=== PATIENT | female | born 1955 | race Caucasian/White ===

== ENCOUNTER → 2016-06-22 | Outpatient (CLI) | payer BC ==
[2016-06-22 18:20] LABS: ALT/SGPT 35 U/L (12-78); AST/SGOT 29 U/L (15-37); BLOOD UREA NITROGEN 20 mg/dl (7-18); BUN/CREATININE RATIO 16.3 (10-20); CARBON DIOXIDE 27 mmol/L (21-32); CHLORIDE 109 mmol/L (98-107); GLUCOSE 89 mg/dl (70-99); SODIUM 144 mmol/L (136-145)
[2016-06-22 18:20] LABS: URINE APPEARANCE CLEAR (CLEAR); URINE BILIRUBIN NEG (NEG); URINE COLOR YELLOW; URINE NITRITE NEG (NEG); URINE PH 5.5 (4.5-7.5); URINE SPECIFIC GRAVITY 1.014 (1.000-1.030); UROBILINOGEN NEG (NEG)
[2016-06-22 18:23] LABS: MANUAL MICROSCOPIC REQUIRED? NO; REVIEW REQ? NO
[2016-06-22 18:26] LABS: ESTIMATED AVERAGE GLUCOSE 131 mg/dl; HA1C FLAG Normal (Normal)
[2016-06-22 18:29] LABS: ALKALINE PHOSPHATASE 39 U/L (45-117); CHOLESTEROL 152 mg/dl (0-200); CHOLESTEROL/HDL RATIO 4.2; HDL CHOLESTEROL 36 mg/dl; LDL CHOLESTEROL CALCULATED 91 mg/dl; PHOSPHORUS 3.1 mg/dl (2.5-4.9); TRIGLYCERIDES 127 mg/dl (0-150); VERY LOW DENSITY LIPOPROT CALC 25 mg/dl
== END | disposition home or self-care (01) ==
LOC: C.LABMFLN 10:50
PROVIDERS: ATTEND Internal Medicine Nephrology
DX: N18.3 Chronic kidney disease, stage 3 (moderate) (principal); E78.5 Hyperlipidemia, unspecified; R73.03 Prediabetes

== ENCOUNTER → 2017-05-03 | Day surgery (SDC) | payer BC ==
[2017-03-30 08:44] VITALS: Ht 162.6 cm; Wt 99.1 kg
[~2017-05-03] VITALS: Ht 162.6 cm; Wt 99.1 kg
[~2017-05-03] MED LIST: 500ML BSS 0.3ML EPI 1:1000PF IRRIG ONE; ACETAMINOPHEN 325 MG TAB PO PRN; ALBU18002 INH; ALPR0.25 PO; AMVISC PLUS 0.8ML SYRINGE INT OCU ONE; ASPI81TA28 PO; ATROPINE SULFATE 0.1 MG/ML 5ML SYR IV PRN; BSS FLUSH ONE; CHOL20007 PO; CITA40TA4 PO; CYCLOPENTOLATE HCL 1% OP SOLN PER DROP CHARGE OPR SCH; DEXT30TA7 PO; EZET10TA63 PO; EpHEDrine SULFATE INJ 50 MG/ML AMP IV PRN; EpINEphrine INJ 1MG/ML AMP 1 MG/ML AMP ONE; FENO134C2 PO; FENTANYL CITRATE INJ 50 MCG/1 ML 2 ML VIAL ONE; GATIFLOXACIN OP SOLN PER DROP CHARGE OPR SCH; HYDR-5688 PO; KETOROLAC 0.5% OP SOLN PER DROP CHARGE OPR SCH; LACTATED RINGER'S 1000ML 500 ML IV SCH; LIDOCAINE 3.5% OPH GEL PER APPLICATION CHARGE ONE; LIDOCAINE HCL 1% MPF 2 ML VIAL ONE; LOSA100T65 PO; MIDAZOLAM HCL 1 MG/ML 2ML VIAL ONE; PHENYLEPHRINE HCL 2.5% OP SOLN PER DROP CHARGE OPR SCH; POVIDONE-IODINE OP SOLN 30 ML BTL ONE; PRLSR20 PO; PROPARACAINE 0.5% OP SOLN PER DROP CHARGE OPR SCH; SPRIN/30 INH; TOBRAMYCIN/DEXAMETHASONE OPH OINT PER APPLN CHARGE ONE; TROPICAMIDE 1% OP SOLN PER DROP CHARGE OPR SCH
[2017-05-03] MEDS: PHENYLEPHRINE HCL 2.5% OP SOLN PER DROP CHARGE OPR SCH ×2 (10:06→10:11)
[2017-05-03] MEDS: TROPICAMIDE 1% OP SOLN PER DROP CHARGE OPR SCH ×2 (10:07→10:12)
[2017-05-03] MEDS: CYCLOPENTOLATE HCL 1% OP SOLN PER DROP CHARGE OPR SCH ×2 (10:08→10:13)
[2017-05-03] MEDS: KETOROLAC 0.5% OP SOLN PER DROP CHARGE OPR SCH ×2 (10:09→10:14)
[2017-05-03] MEDS: GATIFLOXACIN OP SOLN PER DROP CHARGE OPR SCH ×2 (10:10→10:20)
--- NOTE | 2017-05-03 10:24 | History & Physical Bridge - [place] ---
H&P Re-Evaluation Bridge Note: I have examined the patient, reviewed the History & Physical and in the interval since the performance of the History & Physical I have noted the following changes of clinical significance: Diagnosis: Right Cataract Procedure: Right Cataract Removal with Lens Implant No changes noted
--- NOTE | 2017-05-03 10:54 | [facility] Operative Report ---
Operative Report Date of Service May 03, 2017. Operative Report 1. PREOPERATIVE DIAGNOSIS: Cataract of the right eye. 2. POSTOPERATIVE DIAGNOSIS: Same. 3. PROCEDURE: Phacoemulsification with intraocular lens implantation of the right eye. SURGEON: Dr. Waqar Kent. ANESTHESIA: Topical Lidocaine gel, 1% Non- Preserved intracameral Lidocaine, and monitored intravenous sedation. INDICATIONS FOR THE PROCEDURE: The patient is a 62 - year-old female with a history of cataract of the right eye causing significant visual impairment. The details of the proposed procedure were explained to the patient who asked appropriate questions and following discussion of all risks, benefits and alternatives agreed to have the procedure done. 4. OPERATION AND FINDINGS: DESCRIPTION OF PROCEDURE: After informed consent was obtained, the patient was brought to the Operating Room at the [facility]. The patient was placed in a supine position and then the right eye was prepped and draped in the usual sterile fashion for intraocular surgery. A drop of topical Lidocaine gel was placed in the operative eye. A wire lid speculum was then placed in the fornices. A corneal paracentesis was then created temporally. The Non-Preserved Lidocaine was then instilled into the anterior chamber. The anterior chamber was then pressurized with viscoelastic. A 2.0 mm clear corneal incision was then created temporally. A cystotome was inserted into the anterior chamber and used to create a tear in the anterior lens capsule. This capsular tear was then used to create a small flap and the flap was dragged in a counterclockwise direction in order to create a continuous curvilinear capsulorrhexis. Hydrodissection was accomplished with balanced salt solution. Phacoemulsification of the lens nucleus was then performed in a standard [id number] technique. The phaco time was 13 seconds with an average power of 7 %. The remaining cortical material was removed using irrigation aspiration. The capsular bag was then filled with viscoelastic. A [employer]ch [employer] Lomb MI60L +25.0 diopters lens was then loaded into the injector and injected into the capsular bag. The remaining viscoelastic was removed with the irrigation aspiration handpiece. The wound was hydrated and then checked and found to be watertight. The intraocular pressure was checked and found to be adequate. The wire lid speculum was removed and the patient's face was cleaned and dried. TobraDex ointment was placed in the inferior fornix. The patient was discharged to the Recovery Room having tolerated the procedure well. There were no complications. The patient will be seen tomorrow in the office for follow-up. I attest to the content of the Intraoperative Record and any orders documented therein. Any exceptions are noted below.
--- NOTE | 2017-05-03 10:55 | Discharge Instructions-SurgCtr ---
Discharge Instructions Date of Service May 03, 2017. Visit Reason for Visit: Cataract Right Eye Discharge Discharge Diagnosis / Problem: cataract Discharge Goals Goal(s): Improve function Activity Recommendations Activity Limitations: per Instructions/Follow-up section Anesthesia . Post Anesthesia Instructions: If you have had General Anesthesia or IV Sedation: * Do not drive today. * Resume driving when surgeon permits. * Do not make important decisions or sign legal documents today. * Call surgeon for: 1. Temperature elevations greater than 101 degrees F. 2. Uncontrollable pain. 3. Excessive bleeding. 4. Persistent nausea and vomiting. 5. Medication intolerance (nausea, vomiting or rash). * For nausea and vomiting use only clear liquids such as: tea, soda, bouillon until nausea subsides, then gradually increase diet as tolerated. * If you have any concerns or questions, call your surgeon's office. If physician is unavailable and it is an emergency, call 911 or go to the nearest emergency room. . Diet Recommendations Home Diet: resume previous diet Procedures Procedures Performed: Right Cataract Phacoemulsification With Intraocular Lens Implant Pending Studies Studies pending at discharge: no Medical Emergencies . Who to Call and When: Medical Emergencies: If at any time you feel your situation is an emergency, please call 911 immediately. . Non-Emergent Contact Non-Emergency issues call your: Director Of Supply Chain . . "Provider Documentation" section prepared by Waqar Kent. .
[2017-05-03 10:57] VITALS: TEMP 36.8
--- NOTE | 2017-05-03 11:03 | Anesthesia Progress Nt - [facility] ---
Anesthesia Post Op Note Date & Time May 03, 2017 at 11:03 Vital Signs Pain Intensity: 0 Vital Signs Past 12 Hours Date Time Temp Pulse Resp B/P (MAP) Pulse Ox O2 Delivery O2 Flow Rate FiO2 05/03/17 09:53 36.6 79 20 139/86 (103) 99 Room Air Notes Mental Status: alert / awake / arousable, participated in evaluation Pt Amnestic to Procedure: Yes Nausea / Vomiting: adequately controlled Pain: adequately controlled Airway Patency, RR, SpO2: stable & adequate BP & HR: stable & adequate Hydration State: stable & adequate Anesthetic Complications: no major complications apparent
[2017-05-03 11:35] VITALS: BP 124/79; PULSE 83; O2SAT 95
== END | disposition home or self-care (01) ==
LOC: X.SURG 09:11
PROVIDERS: ATTEND Ophthalmology
DX: H26.9 Unspecified cataract (principal); J45.909 Unspecified asthma, uncomplicated; I12.9 Hypertensive chronic kidney disease with stage 1 through stage 4 chronic kidney disease, or unspecified chronic kidney disease; N18.9 Chronic kidney disease, unspecified; F41.9 Anxiety disorder, unspecified; F32.9 Major depressive disorder, single episode, unspecified; K21.9 Gastro-esophageal reflux disease without esophagitis; M19.90 Unspecified osteoarthritis, unspecified site; Z90.49 Acquired absence of other specified parts of digestive tract

== ENCOUNTER → 2017-05-17 | Day surgery (SDC) | payer BC ==
[2017-05-09 10:35] VITALS: Ht 162.6 cm; Wt 99.1 kg
[~2017-05-17] VITALS: Ht 162.6 cm; Wt 99.1 kg
[~2017-05-17] MED LIST changes: -CYCLOPENTOLATE HCL 1% OP SOLN PER DROP CHARGE OPR SCH; -GATIFLOXACIN OP SOLN PER DROP CHARGE OPR SCH; -KETOROLAC 0.5% OP SOLN PER DROP CHARGE OPR SCH; -PHENYLEPHRINE HCL 2.5% OP SOLN PER DROP CHARGE OPR SCH; +PROPARACAINE 0.5% OP SOLN PER DROP CHARGE OPL SCH; -PROPARACAINE 0.5% OP SOLN PER DROP CHARGE OPR SCH; -TROPICAMIDE 1% OP SOLN PER DROP CHARGE OPR SCH
[2017-05-17] MEDS: PHENYLEPHRINE HCL 2.5% OP SOLN PER DROP CHARGE OPL SCH ×2 (10:07→10:12)
[2017-05-17] MEDS: TROPICAMIDE 1% OP SOLN PER DROP CHARGE OPL SCH ×2 (10:08→10:13)
[2017-05-17] MEDS: CYCLOPENTOLATE HCL 1% OP SOLN PER DROP CHARGE OPL SCH ×2 (10:09→10:14)
[2017-05-17] MEDS: KETOROLAC 0.5% OP SOLN PER DROP CHARGE OPL SCH ×2 (10:10→10:15)
[2017-05-17] MEDS: GATIFLOXACIN OP SOLN PER DROP CHARGE OPL SCH ×2 (10:11→10:21)
--- NOTE | 2017-05-17 10:43 | History & Physical Bridge - [place] ---
H&P Re-Evaluation Bridge Note: I have examined the patient, reviewed the History & Physical and in the interval since the performance of the History & Physical I have noted the following changes of clinical significance: Diagnosis: Left Cataract Procedure: Left Cataract Removal with Lens Implant No changes noted
--- NOTE | 2017-05-17 11:13 | [facility] Operative Report ---
Operative Report Date of Service May 17, 2017. Operative Report 1. PREOPERATIVE DIAGNOSIS: Cataract of the left eye. 2. POSTOPERATIVE DIAGNOSIS: Same. 3. PROCEDURE: Phacoemulsification with intraocular lens implantation of the left eye. SURGEON: Dr. Waqar Kent. ANESTHESIA: Topical Lidocaine gel, 1% Non- Preserved intracameral Lidocaine, and monitored intravenous sedation. INDICATIONS FOR THE PROCEDURE: The patient is a 62 - year-old female with a history of cataract of the left eye causing significant visual impairment. The details of the proposed procedure were explained to the patient who asked appropriate questions and following discussion of all risks, benefits and alternatives agreed to have the procedure done. 4. OPERATION AND FINDINGS: DESCRIPTION OF PROCEDURE: After informed consent was obtained, the patient was brought to the Operating Room at the [facility]. The patient was placed in a supine position and then the left eye was prepped and draped in the usual sterile fashion for intraocular surgery. A drop of topical Lidocaine gel was placed in the operative eye. A wire lid speculum was then placed in the fornices. A corneal paracentesis was then created temporally. The Non-Preserved Lidocaine was then instilled into the anterior chamber. The anterior chamber was then pressurized with viscoelastic. A 2.0 mm clear corneal incision was then created temporally. A cystotome was inserted into the anterior chamber and used to create a tear in the anterior lens capsule. This capsular tear was then used to create a small flap and the flap was dragged in a counterclockwise direction in order to create a continuous curvilinear capsulorrhexis. Hydrodissection was accomplished with balanced salt solution. Phacoemulsification of the lens nucleus was then performed in a standard [id number] technique. The phaco time was 13 seconds with an average power of 9 %. The remaining cortical material was removed using irrigation aspiration. The capsular bag was then filled with viscoelastic. A Bausch & Lomb MI60L +24.5 diopters lens was then loaded into the injector and injected into the capsular bag. The remaining viscoelastic was removed with the irrigation aspiration handpiece. The wound was hydrated and then checked and found to be watertight. The intraocular pressure was checked and found to be adequate. The wire lid speculum was removed and the patient's face was cleaned and dried. TobraDex ointment was placed in the inferior fornix. The patient was discharged to the Recovery Room having tolerated the procedure well. There were no complications. The patient will be seen tomorrow in the office for follow-up. I attest to the content of the Intraoperative Record and any orders documented therein. Any exceptions are noted below.
--- NOTE | 2017-05-17 11:14 | Discharge Instructions-SurgCtr ---
Discharge Instructions Date of Service May 17, 2017. Visit Reason for Visit: Cataract Left Eye Discharge Discharge Diagnosis / Problem: cataract Discharge Goals Goal(s): Improve function Activity Recommendations Activity Limitations: per Instructions/Follow-up section Anesthesia . Post Anesthesia Instructions: If you have had General Anesthesia or IV Sedation: * Do not drive today. * Resume driving when surgeon permits. * Do not make important decisions or sign legal documents today. * Call surgeon for: 1. Temperature elevations greater than 101 degrees F. 2. Uncontrollable pain. 3. Excessive bleeding. 4. Persistent nausea and vomiting. 5. Medication intolerance (nausea, vomiting or rash). * For nausea and vomiting use only clear liquids such as: tea, soda, bouillon until nausea subsides, then gradually increase diet as tolerated. * If you have any concerns or questions, call your surgeon's office. If physician is unavailable and it is an emergency, call 911 or go to the nearest emergency room. . Diet Recommendations Home Diet: resume previous diet Procedures Procedures Performed: Left Cataract Phacoemulsification With Intraocular Lens Implant Pending Studies Studies pending at discharge: no Medical Emergencies . Who to Call and When: Medical Emergencies: If at any time you feel your situation is an emergency, please call 911 immediately. . Non-Emergent Contact Non-Emergency issues call your: Wood Lather . . "Provider Documentation" section prepared by Waqar Kent. .
[2017-05-17 11:16] VITALS: TEMP 36
[2017-05-17 11:31] VITALS: BP 106/73; PULSE 80; O2SAT 96
--- NOTE | 2017-05-17 11:35 | Anesthesia Progress Nt - [facility] ---
Anesthesia Post Op Note Date & Time May 17, 2017 at 11:35 Vital Signs Pain Intensity: 0 Vital Signs Past 12 Hours Date Time Temp Pulse Resp B/P (MAP) Pulse Ox O2 Delivery O2 Flow Rate FiO2 05/17/17 11:31 80 16 106/73 (84) 96 Room Air 05/17/17 11:16 36.0 85 16 120/84 (96) 96 Room Air 05/17/17 09:58 36.6 83 16 121/81 (94) 96 Room Air Notes Mental Status: alert / awake / arousable, participated in evaluation Pt Amnestic to Procedure: Yes Nausea / Vomiting: adequately controlled Pain: adequately controlled Airway Patency, RR, SpO2: stable & adequate BP & HR: stable & adequate Hydration State: stable & adequate Anesthetic Complications: no major complications apparent
== END | disposition home or self-care (01) ==
LOC: X.SURG 09:24
PROVIDERS: ATTEND Ophthalmology
DX: H26.9 Unspecified cataract (principal); N18.3 Chronic kidney disease, stage 3 (moderate); I12.9 Hypertensive chronic kidney disease with stage 1 through stage 4 chronic kidney disease, or unspecified chronic kidney disease; F41.9 Anxiety disorder, unspecified; E78.5 Hyperlipidemia, unspecified; K21.9 Gastro-esophageal reflux disease without esophagitis; J45.909 Unspecified asthma, uncomplicated; F32.9 Major depressive disorder, single episode, unspecified; E66.9 Obesity, unspecified; Z90.49 Acquired absence of other specified parts of digestive tract; Z98.51 Tubal ligation status; Z79.82 Long term (current) use of aspirin; Z79.899 Other long term (current) drug therapy; Z88.8 Allergy status to other drugs, medicaments and biological substances; Z84.1 Family history of disorders of kidney and ureter; Z82.49 Family history of ischemic heart disease and other diseases of the circulatory system; Z82.5 Family history of asthma and other chronic lower respiratory diseases

== ENCOUNTER → 2017-07-12 | Outpatient (CLI) | payer BC ==
[~2017-07-12] MED LIST changes: -500ML BSS 0.3ML EPI 1:1000PF IRRIG ONE; -ACETAMINOPHEN 325 MG TAB PO PRN; -AMVISC PLUS 0.8ML SYRINGE INT OCU ONE; -ATROPINE SULFATE 0.1 MG/ML 5ML SYR IV PRN; -BSS FLUSH ONE; -EpHEDrine SULFATE INJ 50 MG/ML AMP IV PRN; -EpINEphrine INJ 1MG/ML AMP 1 MG/ML AMP ONE; -FENTANYL CITRATE INJ 50 MCG/1 ML 2 ML VIAL ONE; -LACTATED RINGER'S 1000ML 500 ML IV SCH; -LIDOCAINE 3.5% OPH GEL PER APPLICATION CHARGE ONE; -LIDOCAINE HCL 1% MPF 2 ML VIAL ONE; -MIDAZOLAM HCL 1 MG/ML 2ML VIAL ONE; -POVIDONE-IODINE OP SOLN 30 ML BTL ONE; -PROPARACAINE 0.5% OP SOLN PER DROP CHARGE OPL SCH; -TOBRAMYCIN/DEXAMETHASONE OPH OINT PER APPLN CHARGE ONE
[2017-07-12 18:17] LABS: BLOOD UREA NITROGEN 20 mg/dl (7-18); CREATININE 1.29 mg/dl (0.60-1.20)
== END | disposition home or self-care (01) ==
LOC: C.LABMFLN 11:42
PROVIDERS: ATTEND Psychiatry & Neurology Neurology
DX: R51 Headache (principal); Q04.8 Other specified congenital malformations of brain

== ENCOUNTER → 2017-07-15 | Outpatient (CLI) | payer BC ==
[~2017-07-15] MED LIST changes: +GADAVIST IV PRN
--- NOTE | 2017-07-15 11:42 | DIAGNOSTIC IMAGING REPORT ---
MRI OF THE BRAIN WITHOUT AND WITH IV CONTRAST CLINICAL HISTORY: HEADACHE NECK PAIN. HISTORY OF CHIARI MALFORMATION. COMPARISON STUDY: 09/15/2011 TECHNIQUE: MRI of the brain was performed from the vertex to the skull base utilizing various T1 and T2 weighted sequences. Following the IV administration of 5.5 mL of Gadavist contrast, additional enhanced images were obtained. FINDINGS: Sagittal T1, axial diffusion, proton density and T2 weighted axial, coronal FLAIR, and pre and post axial T1-weighted images were acquired. These were supplemented with post gadolinium coronal T1 weighted images. 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 No intra or extra-axial mass lesions are visualized. Axial diffusion-weighted images reveal no evidence of acute or subacute infarction. There is no evidence of ventricular dilatation. Proton density T2-weighted and FLAIR images reveal scattered foci of increased T2 signal within the white matter, likely on a small vessel basis. These remain stable There are no abnormal flow voids. There is no evidence of pathologic enhancement. IMPRESSION: 1. No significant change from the preceding study 2. Low-lying cerebellar tonsils which extend 5 mm below the foramen magnum 3. No evidence of acute or subacute infarction 4. No evidence of intracranial mass 5. Stable scattered foci of increased T2 signal within the white matter, likely on a small vessel basis Electronically signed by: Po White M.D. 07/15/2017 11:41 AM Dictated Date/Time: 07/15/2017 11:37 AM
== END | disposition home or self-care (01) ==
LOC: C.MRIBC 10:41
PROVIDERS: ATTEND Psychiatry & Neurology Neurology
DX: Q04.8 Other specified congenital malformations of brain (principal); R51 Headache

== ENCOUNTER → 2017-07-18 | Outpatient (CLI) | payer BC ==
[~2017-07-18] MED LIST changes: -GADAVIST IV PRN
--- NOTE | 2017-07-18 11:37 | DIAGNOSTIC IMAGING REPORT ---
C-SPINE ROUTINE 4 OR 5 VIEWS CLINICAL HISTORY: CERVICALGIA COMPARISON STUDY: No previous studies for comparison. FINDINGS: Note is made of reversal of the normal cervical lordosis. There is moderate disc space narrowing with extensive anterior osteophytosis at C4-C5, C5-C6 and C6-C7. There is moderate multilevel facet arthrosis. No fracture or suspicious lesion is identified. IMPRESSION: 1. No cervical spine fracture. 2. Reversal of normal cervical lordosis. 3. Moderate multilevel degenerative disc disease and facet arthrosis of the cervical spine. Electronically signed by: Mike Bass M.D. 07/18/2017 11:35 AM Dictated Date/Time: 07/18/2017 11:34 AM
== END | disposition home or self-care (01) ==
LOC: C.RADBC 10:33
PROVIDERS: ATTEND Physician Assistant Medical
DX: M50.321 Other cervical disc degeneration at C4-C5 level (principal); M50.322 Other cervical disc degeneration at C5-C6 level; M50.323 Other cervical disc degeneration at C6-C7 level; M47.812 Spondylosis without myelopathy or radiculopathy, cervical region

== ENCOUNTER → 2017-08-01 | Outpatient (CLI) | payer BC ==
[2017-08-01 13:01] LABS: BASO % 0.6 %; BASO ABS # 0.03 K/uL (0-0.2); EOS % 3.2 %; EOS ABS # 0.15 K/uL (0-0.5); HEMATOCRIT 41.4 % (37-47); HEMOGLOBIN 13.6 g/dL (12.0-16.0); IG# 0.03 K/uL (0.00-0.02); LYMPH % 34.3 %; LYMPH ABS # 1.61 K/uL (1.2-3.4); MEAN CORPUSCULAR HEMOGLOBIN 27.6 pg (25-34); MEAN CORPUSCULAR HGB CONC 32.9 g/dl (32-36); MEAN PLATELET VOLUME 9.3 fL (7.4-10.4); MONO % 7.5 %; MONO ABS # 0.35 K/uL (0.11-0.59); NEUT % 53.8 %; NEUT ABS # 2.52 K/uL (1.4-6.5); PLATELET COUNT 264 K/uL (130-400); RED CELL DISTRIBUTION WIDTH CV 13.5 % (11.5-14.5); RED CELL DISTRIBUTION WIDTH SD 41.5 fL (36.4-46.3); WHITE BLOOD COUNT 4.69 K/uL (4.8-10.8)
[2017-08-01 13:31] LABS: HEMOGLOBIN A1C 6.2 % (4.5-5.6)
[2017-08-01 13:40] LABS: ALT/SGPT 38 U/L (12-78); AST/SGOT 25 U/L (15-37); BLOOD UREA NITROGEN 17 mg/dl (7-18); CALCIUM 8.6 mg/dl (8.5-10.1); CARBON DIOXIDE 27 mmol/L (21-32); CHOLESTEROL 172 mg/dl (0-200); CREATININE 1.12 mg/dl (0.60-1.20); GLUCOSE 108 mg/dl (70-99); POTASSIUM 4.1 mmol/L (3.5-5.1); SODIUM 142 mmol/L (136-145)
[2017-08-01 13:51] LABS: ALKALINE PHOSPHATASE 42 U/L (45-117); LDL CHOLESTEROL CALCULATED 103 mg/dl
== END | disposition home or self-care (01) ==
LOC: C.LABMFLN 09:09
PROVIDERS: ATTEND Family Medicine
DX: I10 Essential (primary) hypertension (principal); E78.5 Hyperlipidemia, unspecified; R73.03 Prediabetes

== ENCOUNTER 2019-04-03 07:58 | Observation (INO) ==
--- NOTE | 2019-03-05 22:42 | PAT Medication Instructions ---
Medication Instructions Date of Service March 05, 2019 Home Medications Medication Instructions Recorded montelukast 10 mg tablet 10 mg PO QPM #90 tab 10/17/18 ezetimibe 10 mg tablet 10 mg PO QPM #90 tab 10/23/18 albuterol sulfate 90 mcg/actuation 2 puffs INH Q4H PRN #18 gm 11/20/18 aerosol inhaler fenofibrate micronized 134 mg 134 mg PO QPM #90 cap 11/20/18 capsule losartan 100 mg tablet 100 mg PO QAM #90 tab 11/20/18 hydrocodone 5 mg-acetaminophen 325 1 tab PO BID PRN #60 tab 02/15/19 mg tablet montelukast 10 mg tablet 10 mg PO QPM ezetimibe 10 mg tablet 10 mg PO QPM albuterol sulfate 90 mcg/actuation aerosol inhaler 2 puffs INH Q4H PRN fenofibrate micronized 134 mg capsule 134 mg PO QPM losartan 100 mg tablet 100 mg PO QAM hydrocodone 5 mg-acetaminophen 325 mg tablet 1 tab PO BID PRN amlodipine 2.5 mg PO HS aspirin [Aspir-81] 81 mg PO HS cholecalciferol (vitamin D3) 2,000 units PO HS citalopram 20 mg PO HS fluticasone furoate-vilanterol [Breo Ellipta] 2 puffs INH DAILY PRN omeprazole 20 mg PO QPM triamcinolone acetonide 2 sprays INTRANASAL DAILY PRN DO NOT take the morning of surgery losartan 100 mg tablet 100 mg PO QAM Take morning of surgery With a small sip of water, OTHERWISE NOTHING TO EAT OR DRINK AFTER MIDNIGHT: albuterol sulfate 90 mcg/actuation aerosol inhaler 2 puffs INH Q4H PRN (if needed) hydrocodone 5 mg-acetaminophen 325 mg tablet 1 tab PO BID PRN (if needed, may be taken up to four hours before surgery) fluticasone furoate-vilanterol [Breo Ellipta] 2 puffs INH DAILY PRN (if needed) triamcinolone acetonide 2 sprays INTRANASAL DAILY PRN (if needed) Take evening before surgery montelukast 10 mg tablet 10 mg PO QPM ezetimibe 10 mg tablet 10 mg PO QPM albuterol sulfate 90 mcg/actuation aerosol inhaler 2 puffs INH Q4H PRN (if needed) fenofibrate micronized 134 mg capsule 134 mg PO QPM hydrocodone 5 mg-acetaminophen 325 mg tablet 1 tab PO BID PRN (if needed) amlodipine 2.5 mg PO HS aspirin [Aspir-81] 81 mg PO HS cholecalciferol (vitamin D3) 2,000 units PO HS citalopram 20 mg PO HS fluticasone furoate-vilanterol [Breo Ellipta] 2 puffs INH DAILY PRN (if needed) omeprazole 20 mg PO QPM triamcinolone acetonide 2 sprays INTRANASAL DAILY PRN (if needed) Other Notes If you have any questions please call us at [phone] or [phone] or [phone] or [phone]
--- NOTE | 2019-03-06 10:47 | Anesthesiology Consultation ---
Date of Service March 06, 2019 Assessment & Plan (1) Encounter for pre-operative examination: Chart Review Chart Review: Acceptable Risk for Surgery and Patient seen in Pre Admission Testing Teaching & Discussion Instructed NPO after midnight before surgery, except medications with 15 cc of water. Medication instructions provided according to the PAT guidelines. History Surgery Operation Date: 04/03/19 07:00 Proposed Procedures p Left Total Knee Arthroplasty - Gabriel Feliz MD Height/Weight Height: 5 ft 4 in Weight: 102.2 kg Allergies Allergy/AdvReac Type Severity Reaction Status Date / Time No Known Allergies Allergy Verified 02/28/19 13:38 Medications Home Medications Medication Instructions Recorded Confirmed Last Taken montelukast 10 mg tablet 10 mg PO QPM #90 tab 10/17/18 02/28/19 Unknown ezetimibe 10 mg tablet 10 mg PO QPM #90 tab 10/23/18 02/28/19 Unknown albuterol sulfate 90 mcg/actuation 2 puffs INH Q4H PRN #18 gm 11/20/18 02/28/19 Unknown aerosol inhaler fenofibrate micronized 134 mg 134 mg PO QPM #90 cap 11/20/18 02/28/19 Unknown capsule losartan 100 mg tablet 100 mg PO QAM #90 tab 11/20/18 02/28/19 Unknown hydrocodone 5 mg-acetaminophen 325 1 tab PO BID PRN #60 tab 02/15/19 02/28/19 Unknown mg tablet amlodipine 2.5 mg PO HS 02/28/19 02/28/19 Unknown aspirin [Aspir-81] 81 mg PO HS 02/28/19 02/28/19 Unknown cholecalciferol (vitamin D3) 2,000 units PO HS 02/28/19 02/28/19 Unknown citalopram 20 mg PO HS 02/28/19 02/28/19 Unknown fluticasone furoate-vilanterol 2 puffs INH DAILY PRN 02/28/19 02/28/19 Unknown [Breo Ellipta] omeprazole 20 mg PO QPM 02/28/19 02/28/19 Unknown triamcinolone acetonide 2 sprays INTRANASAL DAILY PRN 02/28/19 02/28/19 Unknown Past Medical History Medical History Allergic rhinitis (Chronic) Anxiety and depression Asthma (Chronic) Using inhalers rarely, maybe once q 2 months Generalized osteoarthritis of multiple sites (Chronic) GERD (gastroesophageal reflux disease) Hyperlipidemia (Chronic) Hypertension (Chronic) Migraines (Chronic) Occipital neuralgia (Chronic) NERVE DENERVATION DONE 2017, symptoms are starting to return. Osteoarthritis Pre-diabetes (Chronic) PVC (premature ventricular contraction) Sleep apnea (Chronic) CPAP Stage III chronic kidney disease (Chronic) Exercise / Class Metabolic Activity III < 4 Walking/Shop/Light housework (Mild SOB with 1 FOS, OK with ambulation on flat surface; denies any chest pain) Past Family History Family History Sister Kidney disease Asthma Son Asthma Father Kidney disease renal failure Grandmother (Maternal) Family history of diabetes mellitus Grandfather (Paternal) Family hx of colon cancer Other Heart disease Past Surgical History Surgical History H/O colonoscopy (Chronic) Hx of cataract surgery (Chronic) RT/LEFT Hx of cholecystectomy (Chronic) S/P tubal ligation (Chronic) [place] teeth removed Past Anesthesia History No Hx of Anesthesia Complications and No Family Hx of Anesthesia Complications History of PONV No Hx of PONV and Hx of Motion Sickness Social History Smoking Status: Former smoker tobacco type: cigarettes Do You Dip or Chew Tobacco: No Smoking End Date: 1984 Hx Alcohol Use: No alcohol intake frequency: holidays/special occasions only Hx Substance Use: No substance use type: does not use Review of Systems Pt denies any recent chest pain, shortness of breath, palpitations, cough, fever or URI. +post nasal drip Physical Exam Vital Signs BP: 150/77 (pt states usually 130's systolic; she will take BPs at home and f/u with PCP) P: 76bpm SPO2: 97% RA T: 98.2 F R: 16 ENMT Mouth: + chipped teeth (Top R molar); no dental restorations and no loose teeth Thyromental Distance: > or= 3.5 Finger Breadths (3.5) Mallampati Class: III Neck + short neck; neck extension not limited Respiratory normal respiratory effort Auscultation: lungs clear to auscultation bilaterally Cardiovascular Rate/Rhythm: regular rate Heart Sounds: no murmur Vessels: no carotid bruit Extremities: no edema Testing Laboratory Results 03/06/19 10:40 03/06/19 10:40 PT 10.3 Seconds (9.0-12.0) 03/06/19 10:40 INR 1.0 (0.9-1.1) 03/06/19 10:40 APTT 25.9 Seconds (21.0-31.0) 03/06/19 10:40 Blood Type O Positive 03/06/19 10:40 Antibody Screen NEGATIVE 03/06/19 10:40 Electrocardiogram Date: 03/06/19 Findings: + NSR @ (73bpm) Chest X-Ray Date: 03/06/19 Findings: + NAD
--- NOTE | 2019-03-06 11:14 | XRay Report ---
XR chest Pre-admission PA/Lat CLINICAL HISTORY: Preoperative evaluation. COMPARISON STUDY: No previous studies for comparison. FINDINGS: Lung volumes are normal. Lungs are clear. There is no pneumothorax or pleural effusion. Car diac size is normal. Mediastinal contours are normal. There is no evidence for pulmonary edema. IMPRESSION: No acute cardiopulmonary findings. Electronically signed by: Mike Bass M.D. 03/06/2019 11:13 AM
[2019-03-06 13:27] LABS: Basophils # (auto) 0.04 K/uL (0-0.2); Basophils % (auto) 0.9 %; Eosinophils # (auto) 0.17 K/uL (0-0.5); Eosinophils % (auto) 3.7 %; Hematocrit (blood only) 41.4 % (37-47); Hemoglobin 13.7 g/dL (12.0-16.0); Immature Granulocytes # (auto) 0.02 K/uL (0.00-0.02); Immature Granulocytes % (auto) 0.4 %; Lymphocytes # (auto) 1.67 K/uL (1.2-3.4); Lymphocytes % (auto) 36.4 %; Mean Corpuscular Hgb Conc 33.1 g/dL (32-36); Mean Corpuscular Volume 84.5 fL (80-100); Mean Platelet Volume 9.9 fL (7.4-10.4); Monocytes # (auto) 0.39 K/uL (0.11-0.59); Monocytes % (auto) 8.5 %; Neutrophils % (auto) 50.1 %; Platelet Count 257 K/uL (130-400); RDW Coefficient of Variation 14.4 % (11.5-14.5); RDW Standard Deviation 44.6 fL (36.4-46.3); White Blood Count 4.59 K/uL (4.8-10.8)
[2019-03-06 13:36] LABS: Partial Thromboplastin Time 25.9 Seconds (21.0-31.0); Prothrombin Time 10.3 Seconds (9.0-12.0)
[2019-03-06 13:37] LABS: BUN Creatinine Ratio 17.7 (10-20); Calcium 9.5 mg/dl (8.5-10.1); Creatinine Clr Calc Pharmacy 72.8 ml/min; Est GFR (African American) 76.8; Est GFR (Non-African American) 66.3; Potassium 4.2 mmol/L (3.5-5.1)
--- NOTE | 2019-03-19 21:53 | History and Physical Report ---
DATE OF ADMISSION: 04/03/2019 CHIEF COMPLAINT: Persistent left knee pain and discomfort. HISTORY OF PRESENT ILLNESS: The patient is a 64-year-old female who presents for surgical treatment of her left knee. She has a long history of left knee pain and discomfort treated by my partner Dr. Araya over the years as well as myself. She has been treated with injections, which have become less successful over time. She has chronic pain in her knee that hurts her all the time. The more she walks, the more it hurts. Pain is a little bit more medial, but some global. It does swell. She has nighttime pain. She has developed stiffness in her knee. Occasional instability. She would like to have her left knee fixed. PAST MEDICAL HISTORY: Significant for, 1. Hypertension. 2. Elevated cholesterol. 3. Asthma. 4. Sleep apnea with CPAP machine. 5. Gastroesophageal reflux disease. 6. Obesity. 7. Stage III kidney disease. PAST SURGICAL HISTORY: Include, 1. Cholecystectomy. 2. Tubal ligation. 3. Cataract surgery. ALLERGIES: None. CURRENT MEDICATIONS: Include, 1. Albuterol 2 puffs every 4 hours as needed. 2. Amlodipine 2.5 mg. 3. Aspirin 81 mg. 4. Buspirone 7.5 mg twice a day. 5. Vitamin D3 2000 units per day. 6. Citalopram 20 mg. 7. Ezetimibe 10 mg in the evening. 8. Fenofibrate in the evening. 9. Breo Ellipta puffs daily. 10. Hydrocodone twice a day for pain. 11. Losartan 100 mg a day. 12. Montelukast 10 mg a day. SOCIAL HISTORY: A 64-year-old female. She is . Does not smoke. FAMILY HISTORY: Noncontributory. REVIEW OF SYSTEMS: Significant for apparent stage III kidney disease, but with a current creatinine of 0.92. Denies any chest pain or shortness of breath. No history of DVT or PE. No known bleeding problems. PHYSICAL EXAMINATION: GENERAL: Shows a pleasant, middle-aged female, who looks to be in pretty good health. HEENT: Benign. NECK: Supple, no lymphadenopathy. LUNGS: Clear to auscultation. HEART: Regular rate and rhythm. ABDOMEN: Soft, nontender, nondistended. EXTREMITIES: Grossly neurovascularly intact except as follows: Examination of the left knee reveals the patient walks with slight bit of a limp. She has got varus alignment to her knee. She has a moderate sized knee soft tissue envelope. She is tender over the medial joint line. Small knee effusion. Range of motion is about 5 degrees short of full extension to 125 degrees of flexion. There is no clinical instability. No pain with hip motion. X-RAYS: X-rays of the left knee reviewed. It shows advanced medial compartment DJD. She has complete loss of medial joint space. She has got osteophytes in the lateral compartment as well. She has significant patellofemoral disease as well. ASSESSMENT: A 64-year-old female with advanced left knee tricompartment disease. She has failed conservative treatment and would like to have her left knee replaced. PLAN: We will take her to the operating room and do a left total knee replacement. The risks and benefits of this procedure were explained to the patient including but not limited to DVT, PE, , infection, neurological injury, vascular injury, bleeding problem, pain, limited range of motion, stiffness, failure to relieve symptoms, incomplete relief of symptoms, need for further surgery in future, fracture, leg length inequality, nerve palsy, etc. The patient understands and desires to proceed. Informed consent was obtained. We have tried to get her off her narcotics preoperatively to optimize her outcome. We did talk to her security incident handler and it is okay for her to take an aspirin twice a day for DVT prophylaxis postoperatively even with her kidney disease with a fairly normal creatinine. We will hold all other NSAIDs. As far as discharge plans, she is planning to be discharged to home using [facility] home health program. JAMES
[~2019-04-03 07:58] MED LIST changes: +ACETAMINOPHEN 500 MG TAB PO SCH; -ALBU18002 INH; -ALPR0.25 PO; -ASPI81TA28 PO; +BUPIVACAINE 0.5 % 5 MG/1 ML PF 10ML VIAL ONE; +BUPIVACAINE LIPOSOME/PF 266 MG, BUPIVACAINE/EPINEPHRINE 50 ML, SODIUM CHLORIDE 0.9% 30 ... INFIL SCH; +CEFAZOLIN 2000MG 2,000 MG/15 ML SYR IV SCH; -CHOL20007 PO; -CITA40TA4 PO; -DEXT30TA7 PO; +EPINEPHrine INJ 1 MG/ML AMP ONE; -EZET10TA63 PO; +FAMOTIDINE 20 MG TAB PO SCH; -FENO134C2 PO; +GABAPENTIN 600 MG DOSE PO SCH; -HYDR-5688 PO; -LOSA100T65 PO; +LR 500ML BOLUS, THEN 15ML/HR IV SCH; +LR 60ML/HR IV SCH; +METOCLOPRAMIDE HCL 10 MG TABLET PO SCH; +MIDAZOLAM HCL 1 MG/ML 2ML VIAL ONE; -PRLSR20 PO; +ROPIVACAINE 0.5% 5 MG/ML 30 ML VIAL ONE; +SCOPOLAMINE 1.5 MG TDSY TD SCH; -SPRIN/30 INH; +TRANEXAMIC ACID 1,000 MG **IV Intra-op IV SCH; +fentaNYL citrate 100 MCG/2 ML VIAL ONE
--- NOTE | 2019-04-03 08:59 | History & Physical Bridge Note ---
Date of Service April 03, 2019 History & Physical Bridge Note I have examined the patient, reviewed the History & Physical and in the interval since the performance of the History & Physical I have noted the following changes of clinical significance: no changes noted
[2019-04-03] MEDS ORDERED: HYDROmorphone INJ 1 MG/ML SYRINGE IV PRN (09:20)
[2019-04-03] MEDS ORDERED: ePHEDrine sulfate 50 MG/ML AMP IV PRN (09:20)
[2019-04-03] MEDS ORDERED: ATROPINE SULFATE 0.1 MG/ML 10ML SYR IV PRN (09:20)
[2019-04-03] MEDS ORDERED: LABETALOL HCL IV 5 MG/ML 20ML IV PRN (09:20)
[2019-04-03] MEDS ORDERED: MEPERIDINE HCL 25 MG/ML CARP IV PRN (09:20)
[2019-04-03] MEDS ORDERED: fentaNYL citrate 100 MCG/2 ML VIAL IV PRN (09:20)
[2019-04-03] MEDS ORDERED: ONDANSETRON INJ 2 MG/ML 2 ML VIAL IV PRN ×2 (09:20→14:50)
[2019-04-03] MEDS ORDERED: PHENYLEPHRINE 100MCG/ML 5ML SYR IV PRN (09:20)
[2019-04-03] MEDS ORDERED: TRANEXAMIC ACID / 0.7% NACL 1000MG/100ML BAG IV ONE (09:25)
[2019-04-03] MEDS ORDERED: SODIUM CHLORIDE 0.9% PF 50 ML VIAL ONE (11:11)
[2019-04-03] MEDS ORDERED: BUPIVACAINE LIPOSOME 1.3% 266 MG/20 ML VIAL ONE (11:11)
[2019-04-03] MEDS ORDERED: BACITRACIN INJ 50,000 UNIT VIAL ONE (11:11)
[2019-04-03] MEDS ORDERED: EPINEPHrine INJ 1 MG/ML AMP ONE (11:11)
[2019-04-03] MEDS ORDERED: BUPIVACAINE/EPINEPHRINE 0.25% 1:200,000 30 ML VIAL ONE (11:15)
[2019-04-03] MEDS ORDERED: PROPOFOL IV EMULSION 10 MG/ML 20 ML VIAL IV ONE ×3 (12:12→13:11)
[2019-04-03] MEDS ORDERED: LIDOCAINE HCL 2% 2 ML VIAL/AMP(20MG/ML) INFIL ONE (12:12)
[2019-04-03] MEDS ORDERED: BUPIVACAINE/EPINEPHRINE 0.25% 1:200,000 30 ML VIAL INJ ONE (13:04)
--- NOTE | 2019-04-03 13:23 | Post Operative Brief Note ---
PG Immediate Post Op with CF Date of Surgery April 03, 2019 Pre & Post Diagnosis Operation Date: 04/03/19 10:40 Pre-Op Diagnosis: Left Knee Degenerative Joint Disease Post-Op Diagnosis: Left Knee Degenerative Joint Disease I identified the patient and participated in the time-out.: Yes Procedure Operation Date: 04/03/19 10:40 Actual Procedures p Left Total Knee Arthroplasty(Left) - Gabriel Feliz MD Surgeon Gabriel Feliz MD Acute Care Clinical Nurse Specialist Gaby, PAC Estimated Blood Loss 50 Findings Consistent with Post-Op Diagnosis Fluids 1600 cc Specimens Specimen Description: A. Left knee bone and tissue Anesthesia Type Spinal MAC Complications none Disposition Accompanied Patient To Recovery: No Disposition: Recovery Room
--- NOTE | 2019-04-03 13:51 | XRay Report ---
XR knee LT 1 or 2V routine CLINICAL HISTORY: Surgical Post Op COMPARISON: None. DISCUSSION: There are postsurgical changes of a total left knee arthroplasty and patellar resurfacing . The femoral and tibial components appear well seated. No fractures or dislocations are visualized. There is air within the soft tissues consistent with recent surgery. There are overlying skin jae . IMPRESSION: Postsurgical changes of a total left knee arthroplasty. ACT 112: Negative or not required by law. Electronically signed by: Po White M.D. 04/03/2019 1:50 PM
--- NOTE | 2019-04-03 14:26 | Anesthesiology Progress Note ---
Date of Service April 03, 2019 Anesthesia Post Procedure Vital Signs Vital Signs: Temp Pulse Pulse Resp BP Pulse Ox 04/03/19 14:20 37.1 C 86 24 121/64 97 04/03/19 14:10 37.1 C 89 24 130/63 94 04/03/19 14:00 37.1 C 81 14 116/64 94 04/03/19 13:50 88 16 118/61 97 04/03/19 13:40 86 21 114/61 99 04/03/19 13:30 37.6 C H 91 H 18 102/53 L 98 04/03/19 09:00 36.6 C 89 20 154/81 H 98 Pain Intensity Left Knee: Pain Intensity: 3 Transfer of Care Handoff Completed per policy Notes Mental Status: alert / awake / arousable Patient Amnestic to Procedure: Yes Nausea / Vomiting: adequately controlled Pain: adequately controlled Airway Patency, RR, SpO2: stable & adequate BP & HR: stable & adequate Hydration State: stable & adequate Neuraxial Anesthesia: was administered and sensory block is resolving Anesthetic Complications: no major complications apparent and Pt Satisfied with anesthetic care
[2019-04-03] MEDS ORDERED: MAGNESIUM HYDROXIDE SUSP 30 ML UDC PO PRN (14:50)
[2019-04-03] MEDS ORDERED: ALBUTEROL HFA 8 GM INHALER INH PRN (14:50)
[2019-04-03] MEDS ORDERED: CPAP MACHINE SCH (14:50)
[2019-04-03] MEDS ORDERED: GLUCOSE 10 TABS/TUBE PO PRN (14:50)
[2019-04-03] MEDS ORDERED: METOCLOPRAMIDE HCL INJ 5 MG/ML 2 ML VIAL IV PRN (14:50)
[2019-04-03] MEDS ORDERED: ALUMINUM/MAGNESIUM SUSP 30 ML UDC PO PRN (14:50)
[2019-04-03] MEDS ORDERED: GLUCAGON FOR INJ 1 MG VIAL SQ PRN (14:50)
[2019-04-03] MEDS ORDERED: CARBOHYDRATES FOR HYPOGLYCEMIA PO PRN (14:50)
[2019-04-03] MEDS ORDERED: GLUCOSE 40% GEL 15 GM TUBE PO PRN (14:50)
[2019-04-03] MEDS ORDERED: NALOXONE HCL 0.4 MG/1 ML VIAL/CARP IV PRN (14:50)
[2019-04-03] MEDS ORDERED: DEXTROSE 50% 50 ML SYRINGE IV PRN (14:50)
[2019-04-03] MEDS ORDERED: bisacodyL 10 MG SUPP PR PRN (14:50)
--- NOTE | 2019-04-03 15:17 | Pharmacy Report ---
Glycemic Control Consultation - Date of Service April 03, 2019 - Scope Scope: Glycemic Pharmacist consulted by Dr Feliz on 04/03 for glycemic control and to write orders per [facility] inpatient glycemic control protocol - Objective Weight: 101.287 kg Accuchecks BSG (last 24hrs): 04/03/19 13:34 POC Glucose 113 H - Recent Pertinent Medications Outpatient Anti-diabetic Regimen: * n/a * A1c = 6.3% - 07/2018 Risk Factors for Insulin Resistance: * Recent Surgery: POD 0 * Diet: t2dm - Assessment & Plan Assessment & Plan: ASSESSMENT: * 64 year old female now s/p L knee arthroplasty. POD 0 today. * Pharmacy consulted for glycemic control postop. Patient pre-diabetic per most recent A1C. Not on any agents at home for diabetes * Will utilize bolus insulin postop for glycemic control PLAN FOR INPATIENT GLYCEMIC CONTROL: * Basal insulin * Lantus - hold/not indicated * Bolus insulin * NovoLog per scale ACHS or Q6hrs while NPO * Goal Range: Low 110 mg/dL - High 140 mg/dL * Correction Factor: 30 mg/dL/unit * Nutritional / Prandial insulin per carb ratio of 1 unit per -- grams CHO consumed * Please note that the plan above was derived based on current level of insulin resistance and hospital stress. These recommendations are appropriate for inpatient admission only. Plan of care upon discharge will need to be reassessed to avoid potential outpatient hypo/hyperglycemia. Thank you.
[2019-04-03] MEDS ORDERED: PHARMACY GLYCEMIC MGMT CONSULT PRN (15:39)
[2019-04-03] MEDS: CHECK SCOPOLAMINE PATCH PLACEMENT SCH (15:51)
[2019-04-03] MEDS: KETOROLAC TROMETHAMINE 15 MG/ML VIAL IV SCH ×2 (15:51→21:53)
[2019-04-03] MEDS: SODIUM CHLORIDE 0.9% 1000ML 1,000 ML IV SCH (15:52)
[2019-04-03] MEDS ORDERED: PNEUMOCOCCAL Polysaccharide Vaccine 25mcg/0.5mL vial/Syr IM ONE (16:30)
[2019-04-03] MEDS ORDERED: Nursing to Pharmacy Communication ONE (16:32)
[2019-04-03] MEDS: OXYCODONE HCL IR 5 MG TAB (IMMEDIATE RELEASE) PO PRN ×2 (16:59→18:04)
[2019-04-03] MEDS: ASCORBIC ACID 500 MG TAB PO SCH (17:50)
[2019-04-03] MEDS: FERROUS GLUCONATE 324 MG TAB PO SCH (17:50)
[2019-04-03] MEDS: ACETAMINOPHEN 500 MG TAB PO SCH (17:51)
[2019-04-03] MEDS: INSULIN ASPART 100 UNITS/ML 3 ML PEN SC SCH ×2 (17:55→20:53)
--- NOTE | 2019-04-03 18:08 | Operative Report ---
Post Operative Report Pre & Post Diagnosis Operation Date: 04/03/19 10:40 Pre-Op Diagnosis: Left Knee Degenerative Joint Disease Post-Op Diagnosis: Left Knee Degenerative Joint Disease I identified the patient and participated in the time-out.: Yes Procedure Operation Date: 04/03/19 10:40 Actual Procedures p Left Total Knee Arthroplasty(Left) - Gabriel Feliz MD Surgeon Gabriel Feliz MD Household Chores Gaby, PAC Estimated Blood Loss 50 Findings Consistent with Post-Op Diagnosis Operative findings revealed advanced left knee DJD with extensive grade 4 [id number] disease in the medial compartment. There was scattered grade 4 changes of the patellofemoral compartment and less severe degenerative changes laterally. She had a large knee joint effusion. She had osteophytes primarily in the medial compartment. Fluids 1600 cc Specimens Left knee sent for pathology. Drains None. Anesthesia Type Spinal MAC Complications none Disposition Accompanied Patient To Recovery: No Disposition: Recovery Room Indications Patient is a 64-year-old female has had a fairly long history of bilateral knee pain discomfort left side greater than right. She been through extensive conservative treatment by both myself and my partner. This became less successful over time. She elected proceed with left total knee arthroplasty. Description of Procedure Operative implants consist of: 1. Biomet Vanguard size 65 left posterior stabilized femoral component. 2. Biomet size 67 tibial tray. 3. 10 mm Po stabilized polyethylene insert. 4. 28 x 8 all poly-patella. Patient was taken to the operating room identified and placed on the operating table supine position protectors were properly padded. IV antibiotics were 5 by anesthesia team. Spinal anesthetic and abductor canal block had been provided in the holding area. Jones catheter was placed in sterile fashion the left eye turn was then placed in the left lower extremity was then prepped and draped in usual sterile fashion. The left leg was elevated and exsanguinated with use of an Esmarch and turns placed at 300 mmHg. An anterior posterior left knee was then performed to longitudinal incision centered over the patella. Sharp dissection with Through the subcutaneous tissue down below the extensor mechanism. A medial parapatellar arthrotomy incision was made. Some subperiosteal dissection was carried out medially. The fat pad was dissected from each patella tendon. Lateral patellofemoral ligament was released. Patella was subluxated laterally and the knee was flexed. The osteophytes were taken off the distal femur. The ACL and PCL were then released from distal femur and the tibia subluxated anteriorly. The external tibial alignment jig was then placed in the interface the tibia and adjusted 14 mm medially. Proximal tibial cut was made to move ab out a millimeter or 2 of bone from most efficient aspect the medial tibial plateau. Some osteophytes were taken off medial and posterior medially. Attention drawn the femur. The distal femur was then with a sharp drop with intramedullary canal was suction. I left 5 degree valgus cutting guide was placed. Distal femoral cutting block was pinned in place but this femoral cut was made to take an additional 3 mm of bone off distal femur. Femur was then sized to a size 65. The AP cutting block was pinned parallel to the epicondylar axis which was 4 degrees of external rotation. The anterior cut, anterior chamfer, posterior cut, posterior chamfer cuts were made. Box cutting guide was placed in a just slight lateral box cut was made. The knee was flexed. The remnants of the medial lateral menisci were excised. The osteophytes were taken off the posterior aspect of the femur. A trial femoral component was placed. The tibial tray was pinned in maximum external rotation drill and stem punch we used to create defect in proximal tip for the tibial tray. The knee was then trialed the 10 mm insert fit most appropriately. Attention drawn the patella. Patella was cleaned of all soft tissues. Patella thickness measured 22 mm in thickness and was cut down to 13. Was sized to size 28 patella. Locals were drilled for the 28 patella. The lateral osteophyte is moved. Patella button was placed. Knee was taken through range of motion patella tracked nicely with no thumbs test. Attention then drawn to place the permanent components. 12 trial components removed. A bone plug was placed in the disc femur limit blood loss. L batch Pal[place]os G cement was mixed. Biomet Vanguard size 65 left Po stabilized femoral component, size 67 tibial tray, 10 mm posterior box polyethylene insert, 28 x 8 all poly-patella then cement in place. Knees brought in full extension total cement hardened. Final cement check was then performed. Pericapsular tissues were injected with a total of 100 cc of combination of 20 cc of Exparel, 30 cc normal saline, 50 cc of quarter percent Marcaine with epinephrine. Patient did receive 1 g of tranexamic acid. The tourniquet was then let down for final tourniquet time 55 minutes. Hemostasis assured with electrocautery. The wounds once again irrigated. The extensor mechanism then closed with combination 1 PDS suture #1 Vicryl suture in fi [id number] fashion. Extensor mechanism was found to be intact. Subcutaneous tissue was then closed with 2 Dexon suture in a buried interrupted fashion skin was closed skin jae. Leg was then cleaned dried and sterile dressing composed of Xeroform, 4 x 4's, sterile cast padding, Everette bandage were applied. Patient then transferred to the recovery room in stable condition. Patient tolerated the procedure well and there were no complications. I attest to the content of the Intraoperative Record and any orders documented therein. Any exceptions are noted below.
[2019-04-03] MEDS ORDERED: TRANEXAMIC ACID / 0.7% NACL 1,000 MG/100 ML BAG IV SCH (19:30)
[2019-04-03] MEDS: TAPENTADOL HCL ER 50 MG TABCR PO SCH (20:13)
[2019-04-03] MEDS: CEFAZOLIN 2000MG 2,000 MG/15 ML SYR IV SCH (20:14)
[2019-04-03] MEDS: SENNA 8.6 MG TAB PO SCH (20:22)
[2019-04-03] MEDS: EZETIMIBE 10 MG TABLET PO SCH (20:22)
[2019-04-03] MEDS: CHOLECALCIFEROL 1,000 UNITS TAB PO SCH (20:22)
[2019-04-03] MEDS: PANTOprazole 40 MG TAB PO SCH (20:22)
[2019-04-03] MEDS: CITALOPRAM 20 MG TAB PO SCH (20:22)
[2019-04-03] MEDS: MONTELUKAST SODIUM 10 MG TABLET PO SCH (20:22)
[2019-04-03] MEDS: DOCUSATE SODIUM 100 MG CAP PO SCH (20:22)
[2019-04-03] MEDS: AMLODIPINE BESYLATE 5 MG TAB PO SCH (20:22)
[2019-04-03] MEDS: ASPIRIN 81 MG ECTAB PO SCH (20:23)
[2019-04-04] MEDS: CHECK SCOPOLAMINE PATCH PLACEMENT SCH (00:15)
[2019-04-04] MEDS: OXYCODONE HCL IR 5 MG TAB (IMMEDIATE RELEASE) PO PRN ×4 (00:19→19:00)
[2019-04-04] MEDS: SODIUM CHLORIDE 0.9% 1000ML 1,000 ML IV SCH (02:17)
[2019-04-04] MEDS: KETOROLAC TROMETHAMINE 15 MG/ML VIAL IV SCH (03:37)
[2019-04-04] MEDS: CEFAZOLIN 2000MG 2,000 MG/15 ML SYR IV SCH (03:41)
[2019-04-04 05:35] LABS: Hematocrit (blood only) 34.6 % (37-47); Hemoglobin 11.4 g/dL (12.0-16.0); Mean Corpuscular Hgb Conc 32.9 g/dL (32-36); Mean Platelet Volume 9.2 fL (7.4-10.4); Platelet Count 196 K/uL (130-400); RDW Coefficient of Variation 14.1 % (11.5-14.5); RDW Standard Deviation 43.9 fL (36.4-46.3); Red Blood Count 4.07 M/uL (4.2-5.4); White Blood Count 6.72 K/uL (4.8-10.8)
[2019-04-04 06:01] LABS: BUN Creatinine Ratio 13.3 (10-20); Calcium 8.4 mg/dl (8.5-10.1); Creatinine Clr Calc Pharmacy 53.3 ml/min; Est GFR (Non-African American) 45.7; Potassium 4.1 mmol/L (3.5-5.1)
[2019-04-04] MEDS: ACETAMINOPHEN 500 MG TAB PO SCH ×3 (06:25→20:54)
[2019-04-04 08:16] LABS: Estimated Average Glucose 131 mg/dl; Hemoglobin A1C 6.2 % (4.5-5.6)
[2019-04-04] MEDS: FERROUS GLUCONATE 324 MG TAB PO SCH ×2 (08:41→18:17)
[2019-04-04] MEDS: ASCORBIC ACID 500 MG TAB PO SCH ×2 (08:42→18:17)
[2019-04-04] MEDS: LOSARTAN POTASSIUM 50 MG TAB PO SCH (08:43)
[2019-04-04] MEDS: DOCUSATE SODIUM 100 MG CAP PO SCH ×2 (08:43→19:02)
[2019-04-04] MEDS: ASPIRIN 81 MG ECTAB PO SCH ×2 (08:43→19:01)
[2019-04-04] MEDS: TAPENTADOL HCL ER 50 MG TABCR PO SCH ×2 (08:44→19:01)
[2019-04-04] MEDS: MULTIVITAMIN TAB PO SCH (08:44)
[2019-04-04] MEDS: INSULIN ASPART 100 UNITS/ML 3 ML PEN SC SCH ×4 (08:47→22:34)
[2019-04-04] MEDS: HYDROmorphone INJ 0.5 MG/0.5 ML SYR IV PRN ×3 (10:30→20:54)
[2019-04-04] MEDS: CITALOPRAM 20 MG TAB PO SCH (19:02)
[2019-04-04] MEDS: CHOLECALCIFEROL 1,000 UNITS TAB PO SCH (19:02)
[2019-04-04] MEDS: AMLODIPINE BESYLATE 5 MG TAB PO SCH (19:02)
[2019-04-04] MEDS: PANTOprazole 40 MG TAB PO SCH (19:03)
[2019-04-04] MEDS: SENNA 8.6 MG TAB PO SCH (19:03)
[2019-04-04] MEDS: EZETIMIBE 10 MG TABLET PO SCH (19:03)
[2019-04-04] MEDS: MONTELUKAST SODIUM 10 MG TABLET PO SCH (19:03)
--- NOTE | 2019-04-04 21:27 | Progress Note ---
DATE: 04/04/2019 SUBJECTIVE: A 64-year-old gentleman postop day 1 from left knee replacement. She is doing pretty well. Having some pain, but seems to do okay with the pain pills. No chest pain or shortness of breath. Not feeling dizzy or lightheaded. Therapy went pretty well today. OBJECTIVE: VITAL SIGNS: Temperature of 36.9. Vital signs stable. GENERAL: Physical examination shows a pleasant elderly female. She is lying in her bed and looks reasonably comfortable. EXTREMITIES: Examination of the left leg reveals the dressing to be clean, dry and intact. She can dorsiflex and plantarflex her foot appropriately. She is neurologically intact. LABORATORY DATA: Hemoglobin 11.4. Hematocrit 34.6. Electrolytes show a slightly elevated creatinine of 1.25. ASSESSMENT: A 64-year-old female postop day 1 from a left knee replacement, doing pretty well. Having some pain but responds to the pain pills. Her creatinine is bumped up a bit and she does have some chronic renal disease and we are going to stop her Toradol. PLAN: 1. DVT prophylaxis including thigh-high TEDs, SCDs, and baby aspirin twice a day. 2. PT/OT. Weight bear as tolerated. Left total knee protocol. 3. Pain control. We are going to need to stop her Toradol due to her renal function. We will recheck her creatinine tomorrow. 4. Disposition: Plan to discharge to home with some home health once adequately recovered and medically stable.
[2019-04-05] MEDS: OXYCODONE HCL IR 5 MG TAB (IMMEDIATE RELEASE) PO PRN ×2 (00:47→08:51)
[2019-04-05] MEDS: HYDROmorphone INJ 0.5 MG/0.5 ML SYR IV PRN ×2 (03:45→07:58)
[2019-04-05] MEDS: ACETAMINOPHEN 500 MG TAB PO SCH (05:21)
[2019-04-05 07:22] LABS: BUN Creatinine Ratio 14.3 (10-20); Calcium 8.9 mg/dl (8.5-10.1); Creatinine Clr Calc Pharmacy 58.5 ml/min; Est GFR (African American) 59.3; Est GFR (Non-African American) 51.1; Potassium 3.7 mmol/L (3.5-5.1)
--- NOTE | 2019-04-05 07:37 | Progress Note ---
DATE: 04/05/2019 SUBJECTIVE: A 64-year-old white female postop day 2 from a left knee replacement. She is doing pretty well. Some pain, but seems to be doing okay with pain meds. No chest pain or shortness of breath. Not feeling dizzy or lightheaded. OBJECTIVE: VITAL SIGNS: Temperature 36.9. Vital signs stable. GENERAL: Shows a pleasant, middle-aged female. She is sitting up in bed, looks reasonably comfortable. EXTREMITIES: Examination of the left leg reveals the leg to be well aligned. Dressing is in place. There is just a trace bit of bloody drainage inferiorly. Calf is soft and supple. She is neurologically intact. LABORATORY DATA: Electrolytes and creatinine are pending. ASSESSMENT: A 64-year-old white female postoperative day 2 from a left knee replacement, doing pretty well. Pain has been reasonably well controlled. We did have to stop her Toradol due to her creatinine. PLAN: 1. DVT prophylaxis including thigh-high TEDs, SCDs, and aspirin twice a day. 2. PT/OT. Weight bear as tolerated. Left total knee protocol. 3. Pain control, doing pretty well with current pain regimen. 4. Disposition: Plan to discharge to home with some home health later today.
[2019-04-05] MEDS: TAPENTADOL HCL ER 50 MG TABCR PO SCH (08:50)
[2019-04-05] MEDS: MULTIVITAMIN TAB PO SCH (08:51)
[2019-04-05] MEDS: FERROUS GLUCONATE 324 MG TAB PO SCH (08:51)
[2019-04-05] MEDS: ASCORBIC ACID 500 MG TAB PO SCH (08:52)
[2019-04-05] MEDS: LOSARTAN POTASSIUM 50 MG TAB PO SCH (08:52)
[2019-04-05] MEDS: DOCUSATE SODIUM 100 MG CAP PO SCH (08:52)
[2019-04-05] MEDS: ASPIRIN 81 MG ECTAB PO SCH (09:05)
[2019-04-05] MEDS: INSULIN ASPART 100 UNITS/ML 3 ML PEN SC SCH (09:06)
--- NOTE | 2019-04-06 16:29 | Discharge Summary ---
ADMITTING PHYSICIAN AND SURGEON: Dr. Gabriel Feliz. ADMITTING DIAGNOSIS: Left knee degenerative joint disease. SURGERY PERFORMED: Left total knee arthroplasty. SECONDARY DIAGNOSES: Hypertension, elevated cholesterol, asthma, sleep apnea, gastroesophageal reflux disease, obesity, stage III kidney disease. CONSULTS: None obtained. HISTORY AND PHYSICAL EXAMINATION: Well documented in the patient's chart. HOSPITAL COURSE: The patient was admitted on 04/03/2019 underwent total knee arthroplasty, tolerated the procedure well. There were no complications. She was transferred to the PACU postoperatively and later to the orthopedic floor for further care. She was given Ancef for antibiotic prophylaxis, TIP stockings, SCDs and aspirin for DVT prophylaxis. Hemoglobin, hematocrit and vital signs were monitored during her hospital stay and remained stable. She did not require any blood transfusions. She did have an elevated creatinine postoperatively and her Toradol was discontinued. By postoperative day 2, she was tolerating a diabetic diet. Pain was controlled with oral pain medicine. She was participating in physical therapy. Postop day 2, she was discharged home, set up with home health services. She was given printed discharge instructions as well as new prescriptions for extra strength Tylenol, aspirin and oxycodone. Continue her home medications with the exception of her home dosing of aspirin and [place]. She was told to stop [place]. Continue physical therapy, weightbearing as tolerated, TIP stockings. Follow up approximately 2 weeks postop or sooner if there are any problems or concerns.
== END 2019-04-05 13:02 | disposition home health service (06) ==
LOC: ASU 07:58 → 3E 13:27 → INTOOBSV 13:27

== ENCOUNTER 2021-05-02 14:25 | Observation (INO) ==
--- NOTE | 2021-05-02 15:24 | Emergency Department Note ---
Impression & Plan Surgical wound dehiscence, Right knee pain, History of revision of total knee arthroplasty ED Provider Note CHIEF COMPLAINT: Post-op wound dehiscence HISTORY OF PRESENT ILLNESS: Che Covington is a 66 year old female who underwent right total knee revision with Dr. Feliz yesterday, 05/01/20, who presents to the Emergency Department for evaluation of wound dehiscence from her surgical incision after she suffered a fall last evening. The patient states that she was doing well at home following her surgery last evening, however, when she was using her walker to ambulate about her house she lost her balance and fell forward onto her anterior right knee. She was not wearing her knee immobilizer during the fall. This caused about 6 jae to pull out of the middle of her incision site overlying the patella which gaped open about 1 cm. She states there was a moderate amount of bleeding which she was finally able to control after applying several bandages. When the home health nurse visited her this afternoon, she assessed the wound and as there was still some bleeding, she advised her to come to the ED for further evaluation. Currently, the patient is experiencing pain to her right knee and she rates her discomfort as an 8/10 which worsens with attempts of movement. She has been taking her pain medications which she states has been helping. The patient does note mild tenderness to her lower right back since she fell yesterday but otherwise denies additional complaints. REVIEW OF SYSTEMS: 10 systems were reviewed and were negative unless otherwise stated in HPI as above PHYSICAL EXAM: VITALS: Vitals are noted on the nurse's note and reviewed by myself. Hypertensive, vital signs otherwise stable. General: Resting in wheelchair, no acute distress Head/Eyes: Normocephalic, PERRL, EOMI MSK/Integ: With attention to the RLE, there is a surgical incision over the anterior knee with several jae in place above and below a 3 cm area of dehiscence (jae out) gaping open about 1 cm wide with visibility of the subcutaneous tissues. No visible bone. Slow ooze of blood. Knee is edematous consistent with recent surgery. No surrounding erythema or purulent drainage. ROM limited secondary to pain/swelling. Able to move toes, sensation and d/p pulse intact. No other appreciable wounds, moving all other extremities without apparent pain or difficulty Neuro: Awake, alert and oriented x 3, interacting and answering questions appropriately Differential diagnosis includes post-operative wound dehiscence, fracture, subluxation, dislocation, contusion, ligamentous injury, neurovascular, as well as other pathologies were considered. EMERGENCY DEPARTMENT COURSE: Physical exam and history were performed. Nursing triage notes, EMR, and medication list were personally reviewed. Patient who underwent right total knee revision with Dr. Feliz yesterday, 05/01/20, presents to the Emergency Department for evaluation of wound dehiscence from her surgical incision after she suffered a fall onto her anterior right knee last evening. Additional history as described above. On exam, there is a surgical incision over the anterior right knee with several jae in place above and below a 3 cm area of dehiscence (jae out) gaping open about 1 cm wide with visibility of the subcutaneous tissues. No visible bone. Slow ooze of blood. Knee is edematous consistent with recent surgery. No surrounding erythema or purulent drainage. ROM limited secondary to pain/swelling. Able to move toes, sensation and d/p pulse intact. No other significant findings on exam. X-rays were obtained of the right knee and reviewed by radiologist myself as below. There were expected postoperative changes, no acute fracture identified. I did contact Dr. Feliz and he agreed to evaluate the patient at bedside. After his exam, he decided to take the patient to the operating room for further management. The patient and her verbalized their understanding and agreement with the treatment plan as above. The chart was completed utilizing [employer] Speech Voice Recognition Software. Grammatical errors, random word insertions, pronoun errors, and incomplete sentences are an occasional consequence of this system due to software limitations, ambient noise, and hardware issues. Any formal questions or concerns about the content, text, or information contained within the body of this dictation should be directly addressed to the provider for clarification. Past Med/Surg History Medical History Allergic rhinitis Anemia Anxiety and depression controlled, stable per pt Asthma LAST USE INHALER 11/2020 Chronic back pain GERD (gastroesophageal reflux disease) controlled, stable per pt Hyperlipidemia Hypertension controlled, stable per pt Insomnia Lumbar stenosis Migraines Occipital neuralgia controlled, stable per pt Pre-diabetes NO MEDS PVC (premature ventricular contraction) NO CARDIOLOGY; denies palpitations, lightheadedness/dizziness Sleep apnea CPAP-STOPPED USING 1 YR AGO Spinal stenosis Stage III chronic kidney disease F/U PCP Temporomandibular joint disorder CLICKS RIGHT SIDE, NO LOCKING Unspecified open wound, right knee, initial encounter Surgical History H/O colonoscopy 11/03/2006 repeat 10yrs-COLOGUARD DONE INSTEAD History of left knee replacement 04/03/2019: SAB at L3-L4 x 1 attempt + PNB. No issues per anesthesia postop progress note. History of revision of total replacement of right knee joint 05/01/21 Hx of cataract surgery RT/LEFT Hx of cholecystectomy S/P tubal ligation Status post total right knee replacement 05/27/2020: SAB at L3, 1 attempt + PNB. No issues per anesthesia postop progress note. Total knee replacement status [place] teeth removed Family History Sister Kidney disease Asthma Son Asthma Father Kidney disease renal failure Grandmother (Maternal) Family history of diabetes mellitus Grandfather (Paternal) Family hx of colon cancer Other Heart disease Social History Smoking Status: Former smoker Second Hand Exposure: Yes (father); Do You Dip or Chew Tobacco: No; Tobacco Cessation Education Requested by Patient: No Hx Alcohol Use: No Hx Substance Use: No Preferred Language: Marshallese Communication Ability: Effective Visual Impairment: Limited Hearing Ability: Normal Screen Maker Required: No Beliefs That Will Affect Care: None marital status: Current Living Situation: Spouse current occupational status: employed current occupation: WORKS FROM HOME Other Information That Helps Us Care for You: No Feels Safe at Home: Yes Safety Concerns: Feels Safe At This Time Assistive Devices: Glasses Allergies Allergies Allergy/AdvReac Type Severity Reaction Status Date / Time No Known Allergies Allergy Verified 05/02/21 14:59 Home Meds Home Medications Medication Instructions Recorded Confirmed cholecalciferol (vitamin D3) 50 2,000 units PO HS 02/28/19 05/02/21 mcg (2,000 unit) capsule omeprazole 20 mg capsule,delayed 20 mg PO QPM 02/28/19 05/02/21 release ezetimibe 10 mg tablet 10 mg PO HS 04/24/21 05/02/21 gabapentin 300 mg capsule 300 mg PO BID 04/24/21 05/02/21 sennosides 8.6 mg-docusate sodium 1 tab-cap PO DAILY 05/02/21 05/02/21 50 mg tablet (Senna Plus) Previous Rx's Medication Instructions Recorded CPAP Machine #1 ea 03/23/19 CPAP Supplies #1 ea 09/21/19 albuterol sulfate 90 mcg/actuation 1 - 2 puff INH Q4H PRN #18 g 06/18/20 aerosol inhaler fenofibrate micronized 134 mg 134 mg PO QAM #90 cap 08/13/20 capsule losartan 100 mg tablet 100 mg PO QAM #90 tab 08/13/20 montelukast 10 mg tablet 10 mg PO QPM #90 tab 08/27/20 amlodipine 2.5 mg tablet 2.5 mg PO HS #90 tab 12/23/20 citalopram 20 mg tablet 20 mg PO HS #90 tab 03/01/21 acetaminophen 500 mg capsule 1,000 mg PO TID #180 cap 04/30/21 aspirin 81 mg tablet,delayed 81 mg PO BID 30 Days #60 tab 04/30/21 release (Adult Aspirin Regimen) ketorolac 10 mg tablet 10 mg PO Q6 5 Days #20 tab 04/30/21 ondansetron HCl 4 mg tablet 4 mg PO Q6 PRN #20 tab 04/30/21 oxycodone 5 mg tablet 5 - 10 mg PO Q6 PRN #40 tab 04/30/21 Results & Data (ED) Vital Signs Vital Signs - 24 hr 05/02/21 14:37 05/02/21 17:08 05/02/21 21:48 Temperature 37.4 C Temperature Source Temporal Artery Scan Temporal Artery Scan Pulse Rate 90 Pulse Rate [Apical] 102 H Pulse Rate [Right Finger] 89 Pulse Rhythm [Apical] Regular Respiratory Rate 18 16 22 Respiratory Effort / Characteristics Non-Labored Non-Labored Spontaneous Respiratory Depth Normal Normal Respiratory Pattern Regular Blood Pressure 138/76 Blood Pressure [Left Arm] 135/72 Blood Pressure [Right Arm] 172/78 H Blood Pressure Mean 96 Blood Pressure Mean [Left Arm] 93 Blood Pressure Mean [Right Arm] 109 Blood Pressure Position Sitting Pulse Oximetry 95 98 99 Oxygen Delivery Method Room Air Room Air Oxymask Oxygen Flow Rate 6 Sepsis Recent Fever Within 48 Hours No Sepsis New/Unexplained Change in Mental Status No Sepsis Action Taken by Nursing No Action Required Administered Medications Fentanyl Citrate (Fentanyl Citrate 100 Mcg/2 Ml Vial) 25 mcg IV Q5M PRN PRN Reason: PACU Use Only-Pain Stop: 05/03/21 03:47 Last Admin: 05/02/21 22:00 Dose: 25 mcg Documented by: [id number] Hydromorphone HCl (Hydromorphone Inj 0.5 Mg/0.5 Ml Syr) 0.5 mg IV Q4H PRN PRN Reason: Pain or Pre PT Stop: 05/16/21 22:44 Last Admin: 05/02/21 23:16 Dose: 0.5 mg Documented by: [id number] Sodium Chloride (Nss 1000ml) 1,000 mls @ 100 mls/hr IV .Q10H AYSHA Stop: 05/03/21 06:00 Last Admin: 05/02/21 23:05 Dose: 100 mls/hr Documented by: [id number] Ketorolac Tromethamine (Ketorolac Tromethamine 15 Mg/Ml Vial) 15 mg IV Q6H AYSHA Stop: 05/04/21 17:01 Last Admin: 05/02/21 23:11 Dose: 15 mg Documented by: [id number] Miscellaneous (Fenofibrate Micronized 134 Mg - Order Awaiting Action) 1 ea N/A QS AYSHA Stop: 06/02/21 00:00 Last Admin: 05/02/21 23:54 Dose: Not Given Documented by: [id number] Oxycodone HCl (Oxycodone Hcl Ir 5 Mg Tab (Immediate Release)) 5 - 10 mg PO Q6H PRN PRN Reason: pain Stop: 05/16/21 22:44 Last Admin: 05/03/21 01:37 Dose: 5 mg Documented by: [id number] Discontinued Medications Bupivacaine HCl (Bupivacaine 0.5 % 5 Mg/1 Ml Mpf 30ml Vial) 30 ml INFIL NOW ONE Stop: 05/02/21 15:33 Last Admin: 05/02/21 16:08 Dose: 30 ml Documented by: [id number] Cefazolin Sodium (Ancef 2000mg) 2,000 mg in 15 mls @ 3.75 mls/min IV NOW STA Stop: 05/02/21 15:36 Last Admin: 05/02/21 15:52 Dose: 3.75 mls/min Documented by: [id number] Cefazolin Sodium (Ancef 1000mg) 1,000 mg in 7.5 mls @ 2.5 mls/min IV ONCE ONE Stop: 05/02/21 21:05 Last Admin: 05/02/21 20:23 Dose: 2.5 mls/min Documented by: [id number] Lidocaine/Epinephrine (Lido/Epinephrine/Sod Bicarb 20 Ml Vial) 20 ml INFIL NOW ONE Stop: 05/02/21 15:33 Last Admin: 05/02/21 16:08 Dose: 20 ml Documented by: [id number] Sodium Hypochlorite (Dakin's Soln 0.25% Half Strength 473ml Btl) 1 appln EXT ONCE ONE Stop: 05/02/21 17:43 Last Admin: 05/02/21 21:02 Dose: 1 appln Documented by: [id number] Vancomycin HCl (Vancomycin Hcl 1000mg/20ml Vial) 1,000 mg TOP NOW ONE Stop: 05/02/21 16:31 Last Admin: 05/02/21 16:38 Dose: 1,000 mg Documented by: [id number] Vancomycin HCl (Vancomycin Hcl 1000mg/20ml Vial) Confirm Administered Dose 50 mg .ROUTE .STK-MED ONE Stop: 05/02/21 20:37 Last Admin: 05/02/21 21:02 Dose: 50 mg Documented by: [id number] Imaging Data Radiologist's Impression: Knee X-Ray 05/02/21 15:05 TWO VIEWS RIGHT KNEE CLINICAL HISTORY: Fall. 1 day status post post right knee arthroplasty. FINDINGS: AP and crosstable lateral portable views of the right knee are compared to study dated 05/01/2021. A right knee arthroplasty is in near anatomic alignment. There has been undersurface remodeling of the patella. No acute fracture is seen. There are expected postoperative changes around the knee including skin clips, soft tissue edema, and subcutaneous gas. IMPRESSION: Expected postoperative changes status post right knee arthroplasty. No acute fracture is seen. ACT 112: Negative or not required by law. Electronically signed by: Suleman Kemp M.D. 05/02/2021 3:26 PM Discharge Plan Visit Data Chief Complaint: Fall Stated Complaint: S/P FALL AFTER KNEE REPLACEMENT 05/01/21 ED Provider: Trini Gonzales ED Midlevel Provider: Gladys Lea Discharge Problem: Surgical wound dehiscence, Right knee pain, History of revision of total knee arthroplasty Patient Disposition: Admitted As Inpatient Discharge Instructions Interventions: ED Discharge Assessment Last Done: 05/02/21 19:27
--- NOTE | 2021-05-02 15:27 | XRay Report ---
TWO VIEWS RIGHT KNEE CLINICAL HISTORY: Fall. 1 day status post post right knee arthroplasty. FINDINGS: AP and crosstable lateral portable views of the right knee are compared to study dated 2021. A right knee arthroplasty is in near anatomic alignment. There has been undersurface remodeling of the patella. No acute fracture is seen. There are expected postoperative changes around the knee including skin clips, soft tissue edema, and subcutaneous gas. IMPRESSION: Expected postoperative changes status post right knee arthroplasty. No acute fracture is seen. ACT 112: Negative or not required by law. Electronically signed by: Suleman Kemp M.D. 05/02/2021 3:26 PM
[2021-05-02] MEDS ORDERED: LIDO/EPINEPHRINE/SOD BICARB 20 ML VIAL INFIL ONE (15:32)
[2021-05-02] MEDS ORDERED: BUPIVACAINE 0.5 % 5 MG/1 ML MPF 30ML VIAL INFIL ONE (15:32)
[2021-05-02] MEDS ORDERED: ceFAZolin 2000MG 2,000 MG/15 ML SYR IV STA (15:33)
[2021-05-02] MEDS ORDERED: VANCOMYCIN HCL 1000MG/20ML VIAL TOP ONE (16:30)
--- NOTE | 2021-05-02 17:17 | History & Physical Report ---
Date of Service May 02, 2021 Assessment & Plan (1) Unspecified open wound, right knee, initial encounter: Patient has an open wound that extends down to her knee joint. At this time that can need a formal washout I&D and polyethylene exchange. Will proceed with this. She had food at noon and will I do this 8:00 this evening. The she is got 2 g of Ancef. The risks med this procedure explained the patient in depth and include but not limited to DVT PE infection neurological and vascular bleeding palm pain incomplete relief of symptoms need for further surgery in future and infection. Patient understands and desires to proceed. Fornix is obtained. I did wash her knee out with his Betadine. We will immobilize in the meantime. She'll stay overnight. She'll probably need 2 weeks of antibiotics postop. DVT prophylaxis include thigh teds SCDs and aspirin. (2) Total knee replacement status: History of Present Illness Chief Complaint: . Right knee pain status post a fall after recent knee surgery. Primary Care Provider: Ana Connelly MD .Patient is 66-year-old female well-known to me from my having both of her knees replaced.She underwent an polyethylene exchange just yesterday for recurrent instability in her knee. She did pretty well postoperatively. She was walking yesterday around 630 without her knee immobilizer on. Her knee started feeling wobbly and she fell directly on her knee. The wound, separate and some of the jae came out. Her use some tape to reapproximate the wound. She was seen by the visiting nurse today and sent to the ER. Had a little bit more pain but nothing out of the ordinary. It did bleed quite a bit for a little while but this stopped.No other injuries. Allergies Allergy/AdvReac Type Severity Reaction Status Date / Time No Known Allergies Allergy Verified 05/02/21 14:59 Home Medications Medication Instructions Recorded Confirmed Type cholecalciferol (vitamin D3) 50 2,000 units PO HS 02/28/19 05/02/21 History mcg (2,000 unit) capsule omeprazole 20 mg capsule,delayed 20 mg PO QPM 02/28/19 05/02/21 History release CPAP Machine #1 ea 03/23/19 04/03/21 Rx CPAP Supplies #1 ea 09/21/19 04/03/21 Rx albuterol sulfate 90 mcg/actuation 1 - 2 puff INH Q4H PRN #18 g 06/18/20 05/02/21 Rx aerosol inhaler fenofibrate micronized 134 mg 134 mg PO QAM #90 cap 08/13/20 05/02/21 Rx capsule losartan 100 mg tablet 100 mg PO QAM #90 tab 08/13/20 05/02/21 Rx montelukast 10 mg tablet 10 mg PO QPM #90 tab 08/27/20 05/02/21 Rx amlodipine 2.5 mg tablet 2.5 mg PO HS #90 tab 12/23/20 05/02/21 Rx citalopram 20 mg tablet 20 mg PO HS #90 tab 03/01/21 05/02/21 Rx ezetimibe 10 mg tablet 10 mg PO HS 04/24/21 05/02/21 History gabapentin 300 mg capsule 300 mg PO BID 04/24/21 05/02/21 History acetaminophen 500 mg capsule 1,000 mg PO TID #180 cap 04/30/21 05/02/21 Rx aspirin 81 mg tablet,delayed 81 mg PO BID 30 Days #60 tab 04/30/21 05/02/21 Rx release (Adult Aspirin Regimen) ketorolac 10 mg tablet 10 mg PO Q6 5 Days #20 tab 04/30/21 05/02/21 Rx ondansetron HCl 4 mg tablet 4 mg PO Q6 PRN #20 tab 04/30/21 05/02/21 Rx oxycodone 5 mg tablet 5 - 10 mg PO Q6 PRN #40 tab 04/30/21 05/02/21 Rx sennosides 8.6 mg-docusate sodium 1 tab-cap PO DAILY 05/02/21 05/02/21 History 50 mg tablet (Senna Plus) Past Med/Surg History Medical History (Updated 05/02/21 @ 17:16 by Gabriel Feliz MD) Allergic rhinitis Anemia Anxiety and depression controlled, stable per pt Asthma LAST USE INHALER 11/2020 Chronic back pain GERD (gastroesophageal reflux disease) controlled, stable per pt Hyperlipidemia Hypertension controlled, stable per pt Insomnia Lumbar stenosis Migraines Occipital neuralgia controlled, stable per pt Pre-diabetes NO MEDS PVC (premature ventricular contraction) NO CARDIOLOGY; denies palpitations, lightheadedness/dizziness Sleep apnea CPAP-STOPPED USING 1 YR AGO Spinal stenosis Stage III chronic kidney disease F/U PCP Temporomandibular joint disorder CLICKS RIGHT SIDE, NO LOCKING Unspecified open wound, right knee, initial encounter Surgical History (Updated 05/02/21 @ 17:16 by Gabriel Feliz MD) H/O colonoscopy 11/03/2006 repeat 10yrs-COLOGUARD DONE INSTEAD History of left knee replacement 04/03/2019: SAB at L3-L4 x 1 attempt + PNB. No issues per anesthesia postop progress note. Hx of cataract surgery RT/LEFT Hx of cholecystectomy S/P tubal ligation Status post total right knee replacement 05/27/2020: SAB at L3, 1 attempt + PNB. No issues per anesthesia postop progress note. Total knee replacement status [place] teeth removed Family History Sister Kidney disease Asthma Son Asthma Father Kidney disease renal failure Grandmother (Maternal) Family history of diabetes mellitus Grandfather (Paternal) Family hx of colon cancer Other Heart disease Social History Smoking Status: Former smoker Second Hand Exposure: Yes (FATHER SMOKED); Hx Alcohol Use: No Hx Substance Use: No Preferred Language: Hungarian Communication Ability: Effective Visual Impairment: Limited Hearing Ability: Normal Evp Managing Director Required: No Beliefs That Will Affect Care: None marital status: Current Living Situation: Spouse current occupational status: employed current occupation: WORKS FROM HOME Feels Safe at Home: Yes Assistive Devices: Brace/Splint/Immobilizer and Glasses Review of Systems All systems reviewed & are unremarkable except as noted in HPI & below. Physical Exam . Physical examination reveals a pleasant middle-aged female. She is lying on the exam table looks reasonably comfortable. HEENT exam is benign.Neck is supple with no lymphadenopathy. Lungs clear to auscultation. Heart has a regular rate and rhythm. Abdomen soft nontender nondistended extremities grossly neuro vas intact as follows. Examination of the right knee reveals well aligned knee. There is an open wound of about 5 cm in central aspect of her knee joint. I did inject this with some local and examined the wound. There is a clearly disruption of the medial retinaculum down to the knee joint.She can do a straight leg raise with a little bit of a lag with quite a bit of effort. She can dorsiflex and plantarflex her foot appropriately. She is neurologically intact. Results & Data Results & Data Laboratory Results . Diagnostic Findings . X-rays of the right knee were reviewed. It shows a total knee replacement. There is no air in the joint. No signs of fracture. Patella is intact. PG Care Time/CCT Total # of Minutes Spent Total Time Spent with Patient: Total time spent is greater than 50% in coordination of care (as documented) at patient's floor/unit and/or counseling patient: Coding Level of Care Code 49705 Initial Inpt Care Lvl 3 Diagnoses Unspecified open wound, right knee, initial encounter S81.001A Total knee replacement status Z96.659
[2021-05-02] MEDS ORDERED: DAKIN'S SOLN 0.25% HALF STRENGTH 473ML BTL EXT PRN (17:42)
[2021-05-02] MEDS ORDERED: DAKIN'S SOLN 0.25% HALF STRENGTH 473ML BTL EXT ONE (17:42)
--- NOTE | 2021-05-02 18:14 | Anesthesiology Consultation ---
Date of Service May 02, 2021 Assessment & Plan (1) Encounter for pre-operative examination: Chart Review Chart Review: Acceptable Risk for Surgery History Surgery Operation Date: 05/02/21 20:00 Proposed Procedures p Poly Exchange - Gabriel Feliz MD Height/Weight Height: 5 ft 4 in Allergies Allergy/AdvReac Type Severity Reaction Status Date / Time No Known Allergies Allergy Verified 05/02/21 14:59 Medications Home Medications Medication Instructions Recorded Confirmed Last Taken cholecalciferol (vitamin D3) 50 2,000 units PO HS 02/28/19 05/02/21 05/01/21 mcg (2,000 unit) capsule omeprazole 20 mg capsule,delayed 20 mg PO QPM 02/28/19 05/02/21 05/01/21 release CPAP Machine #1 ea 03/23/19 04/03/21 Unknown CPAP Supplies #1 ea 09/21/19 04/03/21 Unknown albuterol sulfate 90 mcg/actuation 1 - 2 puff INH Q4H PRN #18 g 06/18/20 05/02/21 Unknown aerosol inhaler fenofibrate micronized 134 mg 134 mg PO QAM #90 cap 08/13/20 05/02/21 05/02/21 capsule losartan 100 mg tablet 100 mg PO QAM #90 tab 08/13/20 05/02/21 05/02/21 montelukast 10 mg tablet 10 mg PO QPM #90 tab 08/27/20 05/02/21 05/01/21 amlodipine 2.5 mg tablet 2.5 mg PO HS #90 tab 12/23/20 05/02/21 05/01/21 citalopram 20 mg tablet 20 mg PO HS #90 tab 03/01/21 05/02/21 05/01/21 ezetimibe 10 mg tablet 10 mg PO HS 04/24/21 05/02/21 05/01/21 gabapentin 300 mg capsule 300 mg PO BID 04/24/21 05/02/21 05/02/21 08:00 acetaminophen 500 mg capsule 1,000 mg PO TID #180 cap 04/30/21 05/02/21 05/02/21 08:00 aspirin 81 mg tablet,delayed 81 mg PO BID 30 Days #60 tab 04/30/21 05/02/21 05/02/21 08:00 release (Adult Aspirin Regimen) ketorolac 10 mg tablet 10 mg PO Q6 5 Days #20 tab 04/30/21 05/02/21 05/02/21 12:00 ondansetron HCl 4 mg tablet 4 mg PO Q6 PRN #20 tab 04/30/21 05/02/21 Unknown oxycodone 5 mg tablet 5 - 10 mg PO Q6 PRN #40 tab 04/30/21 05/02/21 05/02/21 12:00 sennosides 8.6 mg-docusate sodium 1 tab-cap PO DAILY 05/02/21 05/02/21 05/02/21 50 mg tablet (Senna Plus) Past Medical History Medical History Allergic rhinitis Anemia Anxiety and depression controlled, stable per pt Asthma LAST USE INHALER 11/2020 Chronic back pain GERD (gastroesophageal reflux disease) controlled, stable per pt Hyperlipidemia Hypertension controlled, stable per pt Insomnia Lumbar stenosis Migraines Occipital neuralgia controlled, stable per pt Pre-diabetes NO MEDS PVC (premature ventricular contraction) NO CARDIOLOGY; denies palpitations, lightheadedness/dizziness Sleep apnea CPAP-STOPPED USING 1 YR AGO Spinal stenosis Stage III chronic kidney disease F/U PCP Temporomandibular joint disorder CLICKS RIGHT SIDE, NO LOCKING Unspecified open wound, right knee, initial encounter Past Family History Family History Sister Kidney disease Asthma Son Asthma Father Kidney disease renal failure Grandmother (Maternal) Family history of diabetes mellitus Grandfather (Paternal) Family hx of colon cancer Other Heart disease Past Surgical History Surgical History (Updated 05/02/21 @ 18:17 by Osorio Keating MD) H/O colonoscopy 11/03/2006 repeat 10yrs-COLOGUARD DONE INSTEAD History of left knee replacement 04/03/2019: SAB at L3-L4 x 1 attempt + PNB. No issues per anesthesia postop progress note. History of revision of total replacement of right knee joint 05/01/21 Hx of cataract surgery RT/LEFT Hx of cholecystectomy S/P tubal ligation Status post total right knee replacement 05/27/2020: SAB at L3, 1 attempt + PNB. No issues per anesthesia postop progress note. Total knee replacement status [place] teeth removed Social History Smoking Status: Former smoker tobacco type: cigarettes Hx Alcohol Use: No Alcohol type: beer alcohol intake frequency: a few times a month Hx Substance Use: No substance use type: prescription drug Physical Exam Vital Signs Last Vital Signs Pulse 89 05/02/21 17:08 Resp 16 05/02/21 17:08 BP 172/78 H 05/02/21 17:08 Pulse Ox 98 05/02/21 17:08 Lab Results Anesthesia Preop Results Results Anesthesia Widget: WBC 5.43 K/uL (4.8-10.8) 04/24/21 Hgb 12.8 g/dL (12.0-16.0) 04/24/21 Hct 39.5 % (37-47) 04/24/21 Plt 231 K/uL (130-400) 04/24/21 Na 145 mmol/L (136-145) 04/24/21 K 4.5 mmol/L (3.5-5.1) 04/24/21 Cl 110 mmol/L (98-107) H 04/24/21 CO2 31 mmol/L (21-32) 04/24/21 BUN 14 mg/dl (6-23) 04/24/21 Creat 0.95 mg/dl (0.6-1.2) 04/24/21 Glucose Level 113 mg/dl (70-99(Fasting)) H 04/24/21 POC Glucose 134 mg/dl (70-99) H 05/01/21 PT 9.9 Seconds (9.0-12.0) 04/24/21 PTT 25.4 Seconds (21.0-31.0) 04/24/21 INR 1.0 (0.9-1.1) 04/24/21 Blood Type O Positive 04/24/21 Antibody Screen NEGATIVE 04/24/21 Testing Electrocardiogram Date: 04/24/21 Findings: + NSR @ (81) and + NSST changes Chest X-Ray Date: 04/24/21 Findings: + NAD
[2021-05-02] MEDS ORDERED: fentaNYL citrate 100 MCG/2 ML VIAL ONE (19:14)
[2021-05-02] MEDS ORDERED: MIDAZOLAM HCL 1 MG/ML 2ML VIAL ONE (19:14)
[2021-05-02] MEDS ORDERED: MEPIVACAINE HCL 1.5% 30 ML VIAL ONE (19:19)
[2021-05-02] MEDS ORDERED: ATROPINE SULFATE 0.1 MG/ML 10ML SYR IV PRN (19:47)
[2021-05-02] MEDS ORDERED: ePHEDrine sulfate 50 MG/ML AMP IV PRN (19:47)
[2021-05-02] MEDS ORDERED: fentaNYL citrate 100 MCG/2 ML VIAL IV PRN (19:47)
[2021-05-02] MEDS ORDERED: ONDANSETRON INJ 2 MG/ML 2 ML VIAL IV PRN ×2 (19:47→22:45)
[2021-05-02] MEDS ORDERED: VANCOMYCIN HCL 1000MG/20ML VIAL ONE (20:36)
[2021-05-02] MEDS ORDERED: PROPOFOL IV EMULSION 10 MG/ML 20 ML VIAL IV ONE (21:01)
[2021-05-02] MEDS ORDERED: KETAMINE 50 MG/5 ML SYRINGE ONE (21:01)
[2021-05-02] MEDS ORDERED: LIDOCAINE 2% 2 ML VIAL/AMP(20MG/ML) INFIL ONE (21:01)
[2021-05-02] MEDS ORDERED: ceFAZolin 1000MG 1,000 MG/7.5 ML SYR IV ONE (21:03)
[2021-05-02] MEDS ORDERED: LABETALOL HCL IV 5 MG/ML 20ML IV ONE (21:22)
--- NOTE | 2021-05-02 21:57 | Operative Report ---
Post Operative Report Pre & Post Diagnosis Operation Date: 05/02/21 20:00 Pre-Op Diagnosis: Right knee wound dehiscence and extensor mechanism dehiscence Status post fall after right knee replacement 05/01/21 Post-Op Diagnosis: Right knee wound dehiscence and extensor mechanism dehiscence Status post fall after right knee replacement 05/01/21 I identified the patient and participated in the time-out.: Yes Procedure Operation Date: 05/02/21 20:00 Actual Procedures p Incision and Debridement of Right total knee replacement(Right)With extensor mechanism repair - Gabriel Feliz MD Surgeon Gabriel Feliz MD Cad Designer Tigre Morris PA-C Estimated Blood Loss 20 Findings Consistent with Post-Op Diagnosis Operative findings revealed a 5 cm open wound. She had dehiscence of the quad repair extending from about 2 cm above the patella to about 4 cm the distal to the patella. The anterior medial aspect of the quad was dehisced. The upper and lower parts were still intact. Specimens None Anesthesia Type Spinal MAC Complications none Disposition Accompanied Patient To Recovery: Yes Indications Patient is 66-year-old female who is 1 day out from polyethylene exchange for instability in her knee. She was at home last evening when her knee gave way and she fell directly on the front of her knee. The wound hist and 6 of the jae removed. Her tried to approximate this with some tape. She was seen by the visiting nurse today and we are consulted and called. We told her to go to the ER. She was evaluated there. I evaluated and there is clear dehiscence of the medial wound and she was indicated for a formal irrigation debridement polyethylene exchange to try and lateral limit her risk of infection.This is also necessary to maximize her quad to function repair and knee function. Description of Procedure Operative implants consist of: One Biomet Vanguard size 14 posterior stabilized polyethylene insert x67 size The patient was taken to the operating, identified, placed on the operating table supine position protectors were properly padded. Patient did receive 2 g of Ancef in the ER. She was given additional gram of Ancef. A spinal anesthetic was implemented. A right thigh turn was then placed. The right leg was then scrubbed with Hibiclens, the jae were then removed and the right leg was then prepped with ChloraPrep. The right leg was prepped and draped in usual sterile fashion. The right leg was elevate exsanguinated use of an Esmarch interspace at 300 mmHg. The wound was opened up. We removed all the sutures the whole way up and down the wound. I then irrigated the wound extensively. I then removed the polyethylene. I then irrigated the wound again. I irrigated it with half- strength Dakin solution and scrub the implants with a toothbrush. With that today can sit in the wound for 3 minutes. I then irrigated this out with 3 L of pulsatile lavage solution. I then irrigated it again with hydrogen peroxide. I scrub the implants again with a toothbrush and then left the hydrogen peroxide sitting there for another 3 minutes. Irrigated the wound with 3 L of pulsatile lavage solution. I then irrigated it one more time with a Betadine soak. I scrubbed implants again. We then irrigated this with 3 L of pulsatile lavage solution. A permanent 14 mm polyethylene plus insert was then placed. The I did place some antibiotics in the back of the wound including total of 1 g of vancomycin with about a third of this in the back of the knee. We then let the tourniquet down. I then sprinkled the remainder the vancomycin underneath the quad. The quad tendon And extensor mechanism was closed with #1 PDS suture in a [id number] fashion. The knee was taken through range of motion and the patella tracked nicely. The quad tendon repair was not in anyUndue tension. She had good range of motion. The extensor mechanism was clearly intact and well repaired. I did sprinkle a little bit of vancomycin in the subcu tissues. The subcutaneous tissues then closed with 2 Dexon suture in buried interrupted fashion skin was closed skin jae. Leg was then cleaned dried and sterile dressing was Xeroform, 4 fours, sterile ABD pad, sterile cast padding, Everette bandage and a knee immobilizer were applied. Patient was then transferred to the recovery room in stable condition. The patient tolerated procedure well and there were no complications. Tigre Alvarez my physician special event assistant, was present for the entire procedure. His assistance was required for proper patient positioning, prepping and draping, surgical exposure, perform the technical details the operation, closure of the wound, placement of sterile bandage. I attest to the content of the Intraoperative Record and any orders documented therein. Any exceptions are noted below.
--- NOTE | 2021-05-02 22:10 | Anesthesiology Progress Note ---
Date of Service May 02, 2021 Anesthesia Post Procedure Vital Signs Vital Signs: Temp Pulse Pulse Pulse Resp BP BP 05/02/21 22:05 90 22 158/85 H 05/02/21 21:55 97 H 20 158/82 H 05/02/21 21:48 99.3 F 102 H 22 135/72 05/02/21 17:08 89 16 05/02/21 14:37 90 18 138/76 BP Pulse Ox 05/02/21 22:05 96 05/02/21 21:55 100 05/02/21 21:48 99 05/02/21 17:08 172/78 H 98 05/02/21 14:37 95 Pain Intensity Right Knee: Pain Intensity: 3 Transfer of Care Handoff Completed per policy Notes Mental Status: alert / awake / arousable and participated in evaluation Patient Amnestic to Procedure: Yes Nausea / Vomiting: adequately controlled Pain: adequately controlled Airway Patency, RR, SpO2: stable & adequate BP & HR: stable & adequate Hydration State: stable & adequate Neuraxial Anesthesia: was administered and sensory block is resolving Anesthetic Complications: no major complications apparent and Pt Satisfied with anesthetic care
[2021-05-02] MEDS ORDERED: NALOXONE HCL 0.4 MG/1 ML VIAL/CARP IV PRN (22:45)
[2021-05-02] MEDS ORDERED: ALBUTEROL HFA 8 GM INHALER INH PRN (22:45)
[2021-05-02] MEDS ORDERED: MAGNESIUM HYDROXIDE SUSP 30 ML UDC PO PRN (22:45)
[2021-05-02] MEDS ORDERED: SODIUM CHLORIDE 0.9% 1000ML 1,000 ML IV SCH (22:45)
[2021-05-02] MEDS ORDERED: HYDROmorphone INJ 0.5 MG/0.5 ML SYR IV PRN (22:45)
[2021-05-02] MEDS ORDERED: ALUMINUM/MAGNESIUM SUSP 30 ML UDC PO PRN (22:45)
[2021-05-02] MEDS ORDERED: bisacodyL 10 MG SUPP PR PRN (22:45)
[2021-05-02] MEDS ORDERED: METOCLOPRAMIDE HCL INJ 5 MG/ML 2 ML VIAL IV PRN (22:45)
[2021-05-02] MEDS ORDERED: ONDANSETRON 4 MG OD TAB PO PRN (22:56)
[2021-05-02] MEDS: KETOROLAC TROMETHAMINE 15 MG/ML VIAL IV SCH (23:11)
[2021-05-03] MEDS: oxyCODONE HCL IR 5 MG TAB (IMMEDIATE RELEASE) PO PRN ×2 (01:37→07:21)
[2021-05-03] MEDS ORDERED: ceFAZolin 2000MG 2,000 MG/15 ML SYR IV SCH (04:00)
[2021-05-03] MEDS: KETOROLAC TROMETHAMINE 15 MG/ML VIAL IV SCH (05:44)
[2021-05-03] MEDS ORDERED: ACETAMINOPHEN 500 MG TAB PO SCH (06:00)
[2021-05-03 06:02] LABS: Hematocrit (blood only) 33.3 % (37-47); Hemoglobin 10.7 g/dL (12.0-16.0); Mean Corpuscular Hemoglobin 27.8 pg (25-34); Mean Corpuscular Hgb Conc 32.1 g/dL (32-36); Mean Corpuscular Volume 86.5 fL (80-100); Platelet Count 221 K/uL (130-400); RDW Coefficient of Variation 14.2 % (11.5-14.5); RDW Standard Deviation 44.9 fL (36.4-46.3); Red Blood Count 3.85 M/uL (4.2-5.4); White Blood Count 6.15 K/uL (4.8-10.8)
[2021-05-03 06:32] LABS: BUN Creatinine Ratio 19.8 (10-20); Calcium 8.5 mg/dl (8.5-10.1); Creatinine Clr Calc Pharmacy 56.8 ml/min; Est GFR (African American) 57.2 ml/min; Est GFR (Non-African American) 49.4 ml/min
[2021-05-03] MEDS ORDERED: ASCORBIC ACID 500 MG TAB PO SCH (08:00)
[2021-05-03] MEDS ORDERED: LOSARTAN POTASSIUM 50 MG TAB PO SCH (09:00)
[2021-05-03] MEDS ORDERED: DOCUSATE SODIUM/SENNA 50/8.6MG TAB PO SCH (09:00)
[2021-05-03] MEDS ORDERED: GABAPENTIN 300 MG CAP PO SCH (09:00)
[2021-05-03] MEDS ORDERED: MULTIVITAMIN TAB PO SCH (09:00)
[2021-05-03] MEDS ORDERED: ASPIRIN 81 MG ECTAB PO SCH (09:00)
[2021-05-03] MEDS ORDERED: DOCUSATE SODIUM 100 MG CAP PO SCH (09:00)
--- NOTE | 2021-05-03 10:05 | Progress Notes ---
DATE OF SERVICE: 05/03/2021. SUBJECTIVE: A 66-year-old white female, now postoperative day 1 from irrigation, debridement and almas yethylene exchange for wound dehiscence after a fall from a total knee polyethylene exchange. She is doing pretty well. Having some moderate pain this morning. No new complaints. OBJECTIVE: VITAL SIGNS: Temperature 36.7. Vital signs are stable. GENERAL: Shows a pleasant middle-aged female. Lying in bed, looks pretty comfortable. EXTREMITIES: Examination of the right leg reveals the leg to be well aligned. Dressing is clean, dr y and intact. Patient can dorsiflex and plantarflex her foot appropriately. She is neurologically i ntact. LABORATORY DATA: Hemoglobin 10.7. Hematocrit 33.3. Electrolytes are stable. ASSESSMENT: A 66-year-old white female, postoperative day 1 from open irrigation, debridement, polye thylene exchange for wound dehiscence after a fall from a total knee revision. She is doing pretty w ell. Having some pain, but not out of the ordinary. She is neurologically intact. PLAN: 1. DVT prophylaxis includes thigh-high TEDs, SCDs, and aspirin twice a day. 2. PT/OT. She can weight bear as tolerated on the right lower extremity. 3. Pain control, doing okay with current pain regimen. 4. Disposition: We will plan to discharge her likely to home today. I need to put her on 10 days o f antibiotics, do this open wound that was open overnight. She will resume therapy. We are going to keep her in the knee immobilizer for all weightbearing activities for the first 2 weeks. Job ID: [id number]
[2021-05-03] MEDS ORDERED: CHOLECALCIFEROL 1,000 UNITS 25 MCG TAB PO SCH (21:00)
[2021-05-03] MEDS ORDERED: amLODIPine BESYLATE 5 MG TAB PO SCH (21:00)
[2021-05-03] MEDS ORDERED: CITALOPRAM 20 MG TAB PO SCH (21:00)
[2021-05-03] MEDS ORDERED: SENNA 8.6 MG TAB PO SCH (21:00)
[2021-05-03] MEDS ORDERED: PANTOprazole 40 MG TAB PO SCH (21:00)
[2021-05-03] MEDS ORDERED: EZETIMIBE 10 MG TABLET PO SCH (21:00)
[2021-05-03] MEDS ORDERED: MONTELUKAST SODIUM 10 MG TABLET PO SCH (21:00)
--- NOTE | 2021-05-06 11:17 | Discharge Summary ---
Date of Service May 06, 2021 Admission HPI (Per Admitting) .Patient is 66-year-old female well-known to me from my having both of her knees replaced.She underwent an polyethylene exchange just yesterday for recurrent instability in her knee. She did pretty well postoperatively. She was walking yesterday around 630 without her knee immobilizer on. Her knee started feeling wobbly and she fell directly on her knee. The wound, separate and some of the jae came out. Her use some tape to reapproximate the wound. She was seen by the visiting nurse today and sent to the ER. Had a little bit more pain but nothing out of the ordinary. It did bleed quite a bit for a little while but this stopped.No other injuries. Admission Exam (Per Admitting) . Physical examination reveals a pleasant middle-aged female. She is lying on the exam table looks reasonably comfortable. HEENT exam is benign.Neck is supple with no lymphadenopathy. Lungs clear to auscultation. Heart has a regular rate and rhythm. Abdomen soft nontender nondistended extremities grossly neuro vas intact as follows. Examination of the right knee reveals well aligned knee. There is an open wound of about 5 cm in central aspect of her knee joint. I did inject this with some local and examined the wound. There is a clearly disruption of the medial retinaculum down to the knee joint.She can do a straight leg raise with a little bit of a lag with quite a bit of effort. She can dorsiflex and plantarflex her foot appropriately. She is neurologically intact. Principal Diagnosis Same as "Discharge Diagnosis" noted below under Discharge Instructions. Discharge Data Procedures Performed Operation Date: 05/02/21 20:00 Actual Procedures p Incision and Debridement of Right total knee replacement(Right) - Gabriel Feliz MD Hospital Course (1) History of revision of total replacement of right knee joint: Admitted on 05/02 after a fall mechanical fall that opened her surgical incision on her right knee. Underwent I&D and poly exchange on right knee on 05/02. No post operatively complications. Discharged home on POD 1 (05/03). Follow up w/ Dr. Feliz in 2 weeks. PG Care Time/CCT Total # of Minutes Spent Total Time Spent with Patient: Total time spent is greater than 50% in coordination of care (as documented) at patient's floor/unit and/or counseling patient: Discharge Plan Discharge Items Patient Disposition: Home - Home Health Services Reason For Visit: S/P FALL AFTER KNEE REPLACEMENT 05/01/21 Discharge Diagnosis: Right Knee Replacement Activity: Per Instructions section Activity Comment: KNEE IMMOBILIZER FOR ALL WEIGHTBEARING Weightbearing: Full weightbearing Weightbearing Comment: Full weight bearing with knee immobilizer on. Non-emergency contact: Surgeon Call non-emergency contact if: you have any medication questions Follow-up/Referrals: Ana Connelly MD [Primary Care Provider] - Diet: Regular Addtl Attending Provider Instructions: ACTIVITY RECOMMENDATIONS: Physical Therapy: * You will go to physical therapy three times each week for four to six weeks after your surgery in order to regain your knee range of motion and to retrain your knee to work properly. * It is just as important to make sure you are getting your knee perfectly straight as it is to regain your knee bend. * Taking a pain pill an hour before therapy can help you have a more productive and comfortable therapy session. Home Exercise: * You were shown a series of exercises (heel props, heel slides, etc.) in the hospital. Do these exercises three to four times each day including the exercises you were shown in physical therapy. Walking: * Get up and walk several times each day. For the first four weeks, try not to stand or walk for more than one hour at a time. If you do stand or walk for more than one hour, you will not hurt anything, but your knee and leg will likely swell. * As you feel comfortable, you may change from the walker or crutches to a cane and then to independent walking. MEDICATIONS: New Medicine: * You will likely be taking one or more of these medications: 1. Oxycodone - A quick and shorter-acting pain medication. Take one to two tablets every six hours to lessen your pain. 2. Aspirin - Thins your blood to lessen the chance of forming a blood clot. * The most common side effects of pain medicine and iron are nausea and constipation. If nausea or constipation is too much of a problem or if you have any questions about your new medicines or doses, call [facility] at [phone]. We will try to help you manage these issues. "VERY IMPORTANT TO READ AND REVIEW" Pain: * The immediate post-operative period after knee replacement surgery is often quite painful. * You are given a prescription for pain medicine. You should take it, as directed, when you need it, especially before physical therapy and before going to bed. Pain that interferes with sleep is very common and can last several months. * You will likely need pain medicine for the first four to six weeks. It will not stop all of the pain. The pain will lessen and as you feel better, you may change to milder pain medicine such as Tylenol. * The most common side effects of pain medicine are nausea and constipation, so don't take more than you need. SPECIAL CARE INSTRUCTIONS: TEDs/Elastic Stockings: * The white elastic stockings help limit swelling and prevent blood clots from forming in your legs. The more you wear them, the more they work. * Wear them for six weeks after knee replacement surgery and four weeks after partial knee replacement. Incision Care: Leave dressing in place. May remove Post-op Day #[address] gauze over incision site and use TIP to hold in place. No tape on skin. Prevention of Infection: * Take antibiotics one hour before any dental cleaning, dental work, urological procedure, gastrointestinal procedure or any invasive surgery in order to prevent your new joint from getting infected. * You may get the antibiotics from the doctor performing the procedure or you may call our office at before and we will call in a prescription to the pharmacy of your choice. Things to Watch For: * Drainage from the incision site that occurs more than one week after your surgery. * Severely increased knee/leg pain or swelling. * Increased redness at the incision site. * Fever above 102 degrees Fahrenheit. * Unusual chest pain or shortness of breath. * Unusual pain or burning with urination. Call [facility] at with any of the above problems or if you have any questions about your medicines or recovery. FOLLOW UP VISIT: Make an appointment to see your doctor for approximately two weeks after surgery for a progress check and staple removal by calling the office at . Pending Studies at Discharge: No Stand-Alone Forms: My [employer], Smoking Cessation Medications and DC Order Prescriptions: New cefadroxil 500 mg capsule 500 mg PO BID 10 Days Qty: 20 RF: 0 Continued albuterol sulfate 90 mcg/actuation HFA aerosol inhaler 1 - 2 puff INH Q4H PRN (Reason: shortness of breath or wheezing) Qty: 18 RF: 5 fenofibrate micronized 134 mg capsule 134 mg PO QAM Qty: 90 RF: 3 losartan 100 mg tablet 100 mg PO QAM Qty: 90 RF: 3 Hold Instructions: backorder montelukast 10 mg tablet 10 mg PO QPM Qty: 90 RF: 3 amlodipine 2.5 mg tablet 2.5 mg PO HS Qty: 90 RF: 3 citalopram 20 mg tablet 20 mg PO HS Qty: 90 RF: 3 ondansetron HCl 4 mg tablet 4 mg PO Q6 PRN (Reason: nausea) Qty: 20 RF: 0 ketorolac 10 mg tablet 10 mg PO Q6 5 Days Qty: 20 RF: 0 aspirin [Adult Aspirin Regimen] 81 mg tablet,delayed release (DR/EC) 81 mg PO BID 30 Days Qty: 60 RF: 2 acetaminophen 500 mg capsule 1,000 mg PO TID Qty: 180 RF: 0 oxycodone 5 mg tablet 5 - 10 mg PO Q6 PRN (Reason: pain) Qty: 40 RF: 0 (DME) CPAP Machine Misc See Rx Instructions .ROUTE .MEDSUPPLY Qty: 1 RF: 0 (DME) CPAP Supplies Misc See Rx Instructions .ROUTE .MEDSUPPLY Qty: 1 RF: 0 omeprazole 20 mg capsule,delayed release(DR/EC) 20 mg PO QPM RF: 0 cholecalciferol (vitamin D3) 2,000 unit capsule 2,000 units PO HS RF: 0 gabapentin 300 mg capsule 300 mg PO BID RF: 0 ezetimibe 10 mg tablet 10 mg PO HS RF: 0 sennosides-docusate sodium [Senna Plus] 8.6-50 mg Tablet 1 tab-cap PO DAILY RF: 0 Discharge Orders: Discharge Order (Routine); Ordered 05/03/21 Ordered By: Gabriel Feliz Admission Data Admit Date/Time: 05/02/21 21:49 Attending Provider: Gabriel Feliz Admit Provider: Gabriel Feliz Primary Care Provider: Ana Connelly Other Interventions: Discharge Summary Assessment (RN) Last Done: 05/03/21 10:48
== END 2021-05-03 12:25 | disposition home health service (06) ==
LOC: ED 14:25 → 3W 19:27 → OR 19:27